=== PATIENT | male | born 1975 | race Caucasian/White ===

== ENCOUNTER 2023-03-03 10:52 | Outpatient (OUT) | payer BC, SELFPAY ==
[2023-03-03 08:43] LABS: Basophils Absolute Auto 0.1 10^3/uL (0.0-0.1); Eosinophils Absolute Auto 0.2 10^3/uL (0.0-0.7); Eosinophils Percent Auto 2.4 % (0.9-7.0); Hematocrit 42.2 % (42.0-54.0); Hemoglobin 14.2 g/dL (14.0-18.0); Immature Granulocytes Abs Auto 0.03 10^3/uL (0.00-0.03); Immature Granulocytes Pct Auto 0.3 % (0.0-0.5); Lymphocytes Absolute Auto 2.1 10^3/uL (1.2-3.8); Mean Corpuscular HGB Conc 33.6 g/dL (29.9-35.2); Mean Corpuscular Hemoglobin 32.4 pg (25.9-34.0); Mean Corpuscular Volume 96.3 fL (80.0-94.0); Mean Platelet Volume 9.5 fL (9.5-13.5); Monocytes Absolute Auto 0.9 10^3/uL (0.3-0.8); Monocytes Percent Auto 9.6 % (1.7-12.0); Neutrophils Absolute Auto 6.5 10^3/uL (1.4-6.5); Neutrophils Percent Auto 65.7 % (43.0-75.0); Platelet Count 255 10^3/uL (150-450); Red Blood Count 4.38 10^6/uL (4.70-6.10); Red Cell Distribution Width 12.7 % (11.0-15.0); White Blood Count 9.8 10^3/uL (4.0-11.0)
[2023-03-03 09:33] LABS: Estimated Average Glucose 111 mg/dL; Glycohemoglobin A1C 5.5 % (4.5-6.2)
[2023-03-03 09:37] LABS: Alanine Aminotransferase 42 U/L (16-63); Albumin Level 3.7 g/dL (3.4-5.0); Alkaline Phosphatase 113 U/L (46-116); Anion Gap 13.1; Aspartate Amino Transferase 15 U/L (15-37); BUN Creatinine Ratio 10.2; Bilirubin Total 0.5 mg/dL (0.2-1.0); Carbon Dioxide 27.9 mmol/L (21.0-32.0); Chloride 105 mmol/L (98-107); Chol HDL Ratio 4.1; Cholesterol 134 mg/dL (<=200); Estimated GFR (African America >60 (>=60); Estimated GFR (Non-African Ame >60 (>=60); Globulin 3.8 g/dL; Glucose 102 mg/dL (74-106); HDL Cholesterol 33 mg/dL (40-60); Sodium 142 mmol/L (136-145); Total Protein 7.5 g/dL (6.4-8.2); Triglycerides 50 mg/dL (<=150)
[2023-03-04 08:08] LABS: HIV Ab/p24 Ag Screen Non Reactive (Non Reactive)
== END 2023-03-03 10:53 | disposition home or self-care (01) ==
LOC: LAB 03-07 10:52
PROVIDERS: PCP Nurse Practitioner Primary Care; Visit Provider Nurse Practitioner Primary Care
DX: Z00.00 Encounter for general adult medical examination without abnormal findings (principal); Z13.6 Encounter for screening for cardiovascular disorders; Z11.4 Encounter for screening for human immunodeficiency virus [HIV]
CPT/HCPCS: 36415; 80053; 80061; 83036; 85025; 87389

== ENCOUNTER 2023-04-11 08:40 | Outpatient (OUT) | payer BC, SELFPAY ==
--- NOTE | 2023-04-11 08:15 | NM_ITS ---
Patient: ANGIE TARIQ Exam Date: 04/11/2023 : 1975 Gender:M Ordering : DR. DEBORAH SWIFT . Admission #: [id number] Family : VANCE BOJORQUEZ Order #: [id number] CLICK HERE TO VIEW EXAM RADIOLOGY REPORT PROCEDURE: NM MARELY PERF SPECT REST STR COMPARISON: None. INDICATIONS: CHEST PAIN, DYSPNEA TECHNIQUE: Exam Description: Stress/Rest one day protocol gated SPECT Rest Imagin.9 mCi Tc-99m Cardiolite IV on 04/11/2023 Stress Imaging 30.4 mCi Tc-99m Cardiolite IV on 04/11/2023 Exercise Protocol: 0.4 mg Lexiscan given IV Heart Rate (bpm): Rest: 72 Max: 146 PMHR: 84 Blood Pressure: Rest: 134/92 Max: 180/102 Exercise Time: Minutes: 9 Seconds: 30 Stage Reached: Stage: 3 Mets 10.2 Symptoms: Rest and peak stress ECG findings were normal and the exercise portion of the study was normal per attending physician Dr. Swift . For more details please see separate cardiac stress test report. FINDINGS: QUALITY OF STUDY: Good. PERFUSION DEFECT: None. LOCATION: N/AApical anterior. [place]. SIZE: Small (1-2 segments). SEVERITY: Moderate. TYPE: Persistent. WALL MOTION: Normal. LV SIZE: Enlarged; EDV 131 mL. TID / TCD: None; 0.9 LVEF: Normal. Calculated EF 63%. SUMMARY: Myocardial perfusion imaging study has ABNORMAL findings. CONCLUSION: 1. Fixed defect in the distal anterior wall and apex 2. No reversible ischemia 3. Dilated left ventricle, EDV 130 milliliters 4. Normal exercise test Dictated by: Zachariah Lozaad MD on 04/11/2023 at 14:22 Approved by: Zachariah Lozada MD on 04/11/2023 at 14:24
--- NOTE | 2023-04-11 11:17 | P.STRESS_ITS ---
Stress Test Stress Test Requesting physician: Mark Felton Procedure: Exercise Cardiolite stress test General Information: Reason for Stress Test: Chest pain Cardiac History and Risk Factors: Recently quit smoking from 2ppd. History of hypertension. Mother has afib. Resting 12 - Lead Electrocardiogram: Rate & rhythm: Normal sinus at a rate of 67. [place]: Normal T-waves: Normal ST-segments:Normal Stress Test: Protocol: Jaguar protocol was followed, with injection of Cardiolite once target heart rate was achieved. Exercise capacity: Good exercise capacity. Total exercise time of 9 minutes 30 seconds reached Jaguar stage 3 at 10.1MPH, 15% grade, & 1.2METs. Blood pressure: Initial: 134/92, Maximum: 180/102, Recovery: 146/88 Rate & rhythm: Patient remained in sinus rhythm during the exercise and recovery portions of the study.? The maximum heart rate was 146, which was 85% of the maximum predicted heart rate 172. ST-segments & T-waves: There were no T-wave changes and no ST-segment changes when compared to the baseline EKG. Patient response/symptoms: There were no symptoms similar to the chief complaint. Mild dyspnea. Interpretation: Normal exercise stress test without electrocardiographical evidence of ischemia. No reproducible chest pain. Cardiolite imaging interpretation will be reported separately. Clinical correlation required.?
== END 2023-04-11 08:41 | disposition home or self-care (01) ==
LOC: NM 08:40
PROVIDERS: PCP Nurse Practitioner Primary Care; Visit Provider Internal Medicine
DX: R07.9 Chest pain, unspecified (principal); I51.7 Cardiomegaly; I51.0 Cardiac septal defect, acquired
CPT/HCPCS: 78452; 93017; A9500

== ENCOUNTER 2023-04-23 06:55 | Outpatient (OUT) | payer BC, SELFPAY ==
[2023-04-23 07:12] LABS: Hematocrit 41.5 % (42.0-54.0); Hemoglobin 13.9 g/dL (14.0-18.0); Mean Corpuscular HGB Conc 33.5 g/dL (29.9-35.2); Mean Corpuscular Hemoglobin 32.3 pg (25.9-34.0); Mean Corpuscular Volume 96.3 fL (80.0-94.0); Mean Platelet Volume 9.1 fL (9.5-13.5); Platelet Count 271 10^3/uL (150-450); Red Blood Count 4.31 10^6/uL (4.70-6.10); Red Cell Distribution Width 12.4 % (11.0-15.0); White Blood Count 14.5 10^3/uL (4.0-11.0)
[2023-04-23 07:44] LABS: Eosinophils Absolute Manual 0.14 10^3/uL (0.00-0.70); Lymphocytes Absolute Manual 5.22 10^3/uL (1.20-3.80); Monocytes Absolute Manual 1.01 10^3/uL (0.30-0.80); Segmented Neut Absolute Manual 8.12 10^3/uL (1.4-6.5)
[2023-04-23 10:24] LABS: Anion Gap 14.4; Calcium 9.2 mg/dL (8.5-10.1); Carbon Dioxide 26.9 mmol/L (21.0-32.0); Chloride 106 mmol/L (98-107); Estimated GFR (African America >60 (>=60); Estimated GFR (Non-African Ame >60 (>=60); Glucose 53 mg/dL (74-106); Potassium 3.3 mmol/L (3.5-5.1); Sodium 144 mmol/L (136-145)
== END 2023-04-23 06:56 | disposition home or self-care (01) ==
LOC: LAB 06:56
PROVIDERS: PCP Nurse Practitioner Primary Care; Visit Provider Internal Medicine Cardiovascular Disease
DX: Z01.818 Encounter for other preprocedural examination (principal)
CPT/HCPCS: 36415; 80048; 85027

== ENCOUNTER 2023-04-25 06:57 | Outpatient (OUT) | payer BC, SELFPAY ==
--- NOTE | 2023-04-25 07:58 | CA_ITS ---
Patient: ANGIE TARIQ Exam Date: 04/25/2023 : 1975 Gender:M Ordering : ALEXANDER TY Admission #: [id number] Family : Order #: [id number] CLICK HERE TO VIEW EXAM ECHOCARDIOGRAM REPORT PROCEDURE: CA ECHO DOPPLER COMPLETE INDICATIONS: Dyspnea COMPARISON: None. DESCRIPTION: COMPLETE ECHOCARDIOGRAM Real-time transthoracic echocardiography with 2D, M-mode, spectral and color flow Doppler performed. QUALITY: Technical quality was good. LEFT VENTRICLE: Normal chamber size. Mild concentric left ventricular hypertrophy. LV EF: Global left ventricular systolic function is normal. Calculated left ventricular ejection fraction is 64% DIASTOLIC: Normal diastolic function. ATRIAL SEPTUM: Inadequately seen. LEFT ATRIUM: Mild dilatation. RIGHT ATRIUM: Normal chamber size. RIGHT VENTRICLE: Normal chamber size. Normal right ventricular systolic function. TRICUSPID VALVE: Normal mobility and thickness. Trivial regurgitation. Mild pulmonary hypertension. RVSP 35mmHg MITRAL VALVE: Normal mobility and thickness. No evidence of mitral valve stenosis. There is no mitral annular calcification. Trivial mitral regurgitation. AORTIC VALVE: Normal trileaflet appearance. No visible sclerosis. Normal leaflet mobility. No evidence of aortic valve stenosis. No aortic regurgitation. AORTIC ROOT: Normal diameter and appearance. PULMONIC VALVE: Normal thickness and mobility. No stenosis. Trivial regurgitation. PERICARDIUM: Anterior free space; trivial effusion versus fat pad. IVC: Collapses with inspirations. Normal size CONCLUSION: 1. Global left ventricular systolic function is normal; visually estimated ejection fraction is 60 to 65% 2. Mildly increased left ventricular wall thickness 3. Normal diastolic function 4. The left atrium is mildly dilated 5. Right ventricle is normal in size and systolic function 6. Mildly elevated right ventricular systolic pressure; RVSP 35 mmHg 7. No significant valvular abnormalities 8. Anterior free space; trivial effusion versus fat pad Adult Echocardiography Procedure Report Left Ventricle LVEDD (3.7 - 5.6 cm): 4.65 cm LVESD (2.2 - 4.0 cm): 3.34 cm LVIVS thickness (0.6 - 1.2 cm): 1.24 cm LVPW thickness (0.5 - 1.0 cm): 1.20 cm e': 0.10 m/s E - e': 9.58 LVOT Max Gradient: 4.80 mm[Hg], 4.17 mm[Hg] LVOT Area (cm2): 1.06 m/s Peak Velocity (LVOT): 1.10 m/s, 1.02 m/s Mean Velocity (LVOT): 0.71 m/s LVOT Diameter 2.16 cm Left Ventricular Ejection Fraction: 64.16 % Left Atrium LA Volume Index (2D A2C): 42.66 ml/m2 Left Atrium Systolic Dimension: 3.87 cm Mitral Valve MV E to A Ratio: 1.41 Mitral Valve A-Wave Peak Velocity: 0.67 m/s Mitral Valve E-Wave Peak Velocity: 0.95 m/s Right Ventricle RV Internal Diastolic Dimension: 3.76 cm Aorta AO Root Diam: 3.32 cm Ascending Ao Diam: 3.10 cm Aortic Valve AoV Area (Peak Abhinav): 3.00 cm2, 3.10 cm2 AoV Area (VTI): 2.92 cm2, 2.77 cm2 Peak Velocity(Antegrade Flow): 1.29 m/s Peak Gradient(Antegrade Flow): 6.64 mm[Hg] Mean Velocity(Antegrade Flow): 0.82 m/s Mean Gradient(Antegrade Flow): 3.18 mm[Hg] Velocity Time Integral: 26.94 cm Tricuspid Valve Peak Velocity (Regurgitant Flow): 1.58 m/s, 2.35 m/s, 2.81 m/s Pulmonic Valve Mean Gradient: 2.43 mm[Hg], 2.94 mm[Hg] Mean Velocity: 0.74 m/s, 0.80 m/s Peak Velocity: 1.14 m/s Peak Gradient: 4.50 mm[Hg], 5.93 mm[Hg] Right Atrium Right Atrium Systolic Pressure: 60.06 ml, 60.06 ml Dictated by: Owen Louie M.D. on 04/25/2023 at 14:24 Approved by: Owen Louie M.D. on 04/25/2023 at 14:27
== END 2023-04-25 06:58 | disposition home or self-care (01) ==
LOC: CARD 06:57
PROVIDERS: PCP Nurse Practitioner Primary Care; Visit Provider Internal Medicine Cardiovascular Disease
DX: R06.09 Other forms of dyspnea (principal)
CPT/HCPCS: 93306

== ENCOUNTER 2023-05-16 10:21 | Outpatient (OUT) | payer BC, SELFPAY ==
[2023-05-16 11:11] LABS: Basophils Absolute Auto 0.1 10^3/uL (0.0-0.1); Basophils Percent Auto 0.5 % (0.2-2.0); Eosinophils Absolute Auto 0.2 10^3/uL (0.0-0.7); Eosinophils Percent Auto 1.4 % (0.9-7.0); Hematocrit 41.8 % (42.0-54.0); Hemoglobin 13.7 g/dL (14.0-18.0); Immature Granulocytes Abs Auto 0.08 10^3/uL (0.00-0.03); Immature Granulocytes Pct Auto 0.7 % (0.0-0.5); Lymphocytes Absolute Auto 3.5 10^3/uL (1.2-3.8); Lymphocytes Percent Auto 29.3 % (20.5-60.0); Mean Corpuscular HGB Conc 32.8 g/dL (29.9-35.2); Mean Corpuscular Hemoglobin 32.2 pg (25.9-34.0); Mean Corpuscular Volume 98.1 fL (80.0-94.0); Mean Platelet Volume 9.3 fL (9.5-13.5); Monocytes Absolute Auto 1.2 10^3/uL (0.3-0.8); Monocytes Percent Auto 10.1 % (1.7-12.0); Neutrophils Absolute Auto 6.9 10^3/uL (1.4-6.5); Platelet Count 263 10^3/uL (150-450); Red Blood Count 4.26 10^6/uL (4.70-6.10); Red Cell Distribution Width 12.5 % (11.0-15.0)
[2023-05-16 11:18] LABS: Anion Gap 7.2; BUN Creatinine Ratio 14.3; Calcium 9.1 mg/dL (8.5-10.1); Carbon Dioxide 30.4 mmol/L (21.0-32.0); Chloride 104 mmol/L (98-107); Estimated GFR (African America >60 (>=60); Estimated GFR (Non-African Ame >60 (>=60); Glucose 85 mg/dL (74-106); Potassium 3.6 mmol/L (3.5-5.1); Sodium 138 mmol/L (136-145)
--- OUTSIDE RECORDS SUMMARY | 2023-06-26 13:41 | XMS_ITS | CCD ---
Author Name Unknown Address [address] [facility] [address] [place] [address] Organization [facility] Care Team Providers Care Architectural Wood Model Maker Name Role Phone SAMSA ., DEBORAH Attending Unavailable DR BRYN AMADOR Consulting Unavailable SAMSA ., DEBORAH Admitting [facility] Primary Care Unavailable SAMSA ., DEBORAH Consulting Unavailable SAMSA ., DEBORAH Attending Unavailable SAMSA ., DEBORAH Consulting Unavailable SAMSA ., DEBORAH Admitting [facility] Primary Care Unavailable SAMSA ., DEBORAH Attending Unavailable SAMSA ., DEBORAH Consulting Unavailable SAMSA ., DEBORAH Admitting [facility] Primary Care Unavailable SHAMMO, VANCE Attending Unavailable SHAMMO, VANCE Consulting Unavailable SHAMMO, VANCE Admitting [facility] Primary Care Unavailable SAMSA ., DEBORAH Admitting [facility] Primary Care Unavailable SAMSA ., DEBORAH Attending Unavailable SAMSA ., DEBORAH Consulting Unavailable DAVID CRUZ Consulting Unavailable ALGHOTHANI, MOHAMAD Admitting Unavailable ALGHOTHANI, MOHAMAD Attending Unavailable ALGHOTHANI, MOHAMAD Attending Unavailable ALGHOTHANI, MOHAMAD Referring Unavailable Problems Problem Classification Problem Date Documented Da te Episodic/Chronic Asthma (8 sources) Mild persistent asthma with (acute) exacerbation; Translations: [Mild persistent asthma, uncomplicated] Onset: 02-20-2022 Chronic Coronary atherosclerosis and other heart disease (2 sources) Other forms of angina pectoris; Translations: [Other forms of angina pectoris] Onset: 04-17-2023 Chronic Disorders of lipid metabolism (1 source) Mixed hyperlipidemia; Translations: [MIXED HYPERLIPIDEMIA] Onset: 02-08-2023 Chronic Essential hypertension (4 sources) Essential (primary) hypertension; Translations: [ESSENTIAL PRIMARY HYPERTENSION] Onset: 08-14-2022 Chronic Nonspecific chest pain (2 sources) Chest pain, unspecified; Translations: [Chest pain, unspecified] Onset: 04-17-2023 Episodic Other screening for suspected conditions (not mental disorders or infectious disease) (2 sources) Abnormal result of other cardiovascular function study; Translations: [Abnormal result of other cardiovascular function study] Onset: 04-17-2023 Episodic Residual codes; unclassified (1 source) Idiopathic hypersomnia with long sleep time; Translations: [IDIO HYPERSOMNIA W/LONG SLEEP TIME] Onset: 03-02-2022 Chronic Residual codes; unclassified (5 sources) Obstructive sleep apnea (adult) (pediatric); Translations: [OBSTRUCTIVE SLEEP APNEA] Onset: 02-21-2022 Chronic Results Test Name Value Interpretation Reference Range Facil ity HPon 05-30-2023 HP Attestation signed by Alexander Richard MD at 05/30/2023 8:56 AM H and P reviewed. No significant changes. Patient presenting with abnormal stress. Plan to proceed with cath. Procedure was explained to patient at length and in detail. Risks, benefits, and alternatives were discussed. Patient is informed that risks of this invasive procedure include, but are not limited to, bleeding, hematoma, kidney injury, CVA, arrythmia requiring defibrillation, need for emergent open heart surgery, and . Patient understands these risks and wishes to proceed. Alexander Richard MD History Of Present Illness Gina Li is a 47 y.o. male presenting for scheduled coronary angiogram. PMHx of tobacco abuse, HTN, DLD, asthma. Was evaluated in the clinic last month for recurrent CP. Reports symptoms of exertional chest pain over the past few months. He reports some associated shortness of breath. He denies any syncope, LE edema, orthopnea, PND, palps, or bleeding. Patient denies any previous history of CVA, PVD, DM, HTN, Depressed LVEF, and CAD. Nuclear MPI was performed and demonstrates area of fixed defect in the apex. Past Medical History He has a past medical history of Asthma, Hyperlipidemia, and Hypertension. Surgical History He has a past surgical history that includes Cholecystectomy. Social History He reports that he quit smoking about 7 weeks ago. His smoking use included cigarettes. He uses smokeless tobacco. He reports that he does not currently use alcohol. No history on file for drug use. Family History Family History Problem Relation Name Age of Onset Atrial fibrillation Mother Allergies Patient has no known allergies. Medications Medications Prior to Admission Medication Sig Dispense Refill Last Dose Advair Diskus 250-50 mcg/dose diskus inhaler Inhale 1 puff in the morning and at bedtime. 05/30/2023 albuterol 90 mcg/actuation inhaler Inhale 2 puffs every 4 (four) hours if needed for wheezing or shortness of breath. 05/30/2023 aspirin 81 mg EC tablet Take 81 mg by mouth in the morning. 05/30/2023 atorvastatin (Lipitor) 20 mg tablet Take 20 mg by mouth at bedtime. 05/29/2023 buPROPion (Zyban) 150 mg 12 hr tablet Take 150 mg by mouth in the morning and at bedtime. 05/30/2023 fexofenadine (Swati) 180 mg tablet Take 180 mg by mouth in the morning. 05/29/2023 losartan (Cozaar) 25 mg tablet Take 25 mg by mouth in the morning. 05/30/2023 montelukast (Singulair) 10 mg tablet Take 10 mg by mouth in the morning. 05/30/2023 omeprazole (PriLOSEC) [address] capsule Take 40 mg by mouth in the morning. 05/30/2023 predniSONE (Deltasone) 20 mg tablet Take 60 mg by mouth in the morning. 05/29/2023 tiotropium (Spiriva) [address] 1 capsule into inhaler and inhale in the morning. 05/30/2023 Review of Systems 12 ROS negative except as in HPI Last Recorded Vitals Visit Vitals BP 124/84 Pulse 71 Resp 14 SpO2 98% Smoking Status Former Physical Exam Constitutional: Well developed, Well nourished, No acute distress, Non-toxic appearance. HENT: Normocephalic, Atraumatic, Bilateral external ears have normal appearance, Nose appears normal, nares are patent. Eyes: PERRLA, EOMI, Conjunctiva normal, No discharge. Neck: Normal range of motion, No tenderness, Supple, No stridor. No cervical lymphadenopathy noted. Cardiovascular: Normal heart rate, Normal rhythm, No murmurs, No rubs, No gallops. Thorax & Lungs: Normal breath sounds, No respiratory distress, No wheezing, No chest tenderness to palpation. Abdomen: Bowel sounds normal, Soft, Nontender, No masses, No pulsatile masses. Skin: Warm, Dry, No erythema, No rash. Back: No tenderness, No CVA tenderness. Extremities: Intact distal pulses, No edema, No tenderness, No cyanosis, No clubbing. Musculoskeletal: Grossly normal strength in extremities Neurologic: Alert & oriented x 3, no gross focal neurological deficits Psychiatric: Affect normal, Judgment normal, Mood normal. Relevant Lab Results Lab Results Component Value Date NA 138 05/16/2023 K 3.5 05/16/2023 CL 104 05/16/2023 CO2 30.4 05/16/2023 BUN 14 05/16/2023 Relevant Imaging Results Electrocardiogram, 12-lead Normal sinus rhythm Normal ECG No previous ECGs available Assessment/Plan Active Problems: Chest pain Abnormal stress test - Given typical chest pain and abnormal stress test with fixed defect, recommend invasive coronary angiography with possible PCI to delineate coronary anatomy and identify any high risk lesions. -Procedure was explained to patient at length and in detail. Risks, benefits, and alternatives were discussed. -Patient is informed that risks of this invasive procedure include, but are not limited to, bleedin (more content not included)... Normal [facility] SHAYNOTCale 05-30-2023 SHAYNOTGely RN educated pt on d/ c instructions. RN encouraged pt to voice any questions or concerns. Pt verbalizes no questions or concerns at this time. Pt was wheeled off of unit with all of belongings. Normal [facility] Telephoneon 05-15-2023 Telephone [id number] Desire Li 1975 M Date Provider Department Center 05/15/2023 MEHREEN HACKETT [facility] DE [facility] Family History Problem Relation Age of Onset Atrial fibrillation Mother Family Status - Relation Status Age at Mother Normal [facility] Orders Onlyon 05-07-2023 Orders Only [id number] Desire Li 1975 M Date Provider Department Center 05/07/2023 MEHREEN HACKETT [facility] Family History Problem Relation Age of Onset Atrial fibrillation Mother Family Status - Relation Status Age at Mother [facility] Office Visiton 04-17-2023 Follow-up visit [id number] Desire Li 1975 M Date Provider Department Center 04/17/2023 ALEXANDER CONTE CARD [facility] Family History Problem Relation Age of Onset Atrial fibrillation Mother Family Status - Relation Status Age at Mother Level of Service:43694 [facility] OFFICE/OUTPATIENT NEW MODERATE MDM 45-59 MINUTES Normal [facility] Orders Onlyon 04-17-2023 Orders Only [id number] Desire Li 1975 M Date Provider Department Center 04/17/2023 CHAVO WHITAKER CARD [facility] Family History Problem Relation Age of Onset Atrial fibrillation Mother Family Status - Relation Status Age at Mother [facility] CBC AUTO DIFFon 08-14-2022 BASO # 0.1 103/ul Normal 0.0-0.1 [facility] Comment on above: Performed By: #### C BC #### [facility] [address] [place] [address] Dr. Miriam Ernandez Basophils/100 WBC (Bld) 0.5 % Normal 0.2-2.0 [facility] Comment on above: Performed By: #### C BC #### [facility] [address] [place] [address] Dr. Miriam Ernandez EO # 0.2 103/ul Normal 0.0-0.7 [facility] Comment on above: Performed By: #### C BC #### [facility] [address] [place] [address] Dr. Miriam Ernandez Eosinophils/100 WBC (Bld) 1.7 % Normal 0.9-7.0 [facility] Comment on above: Performed By: #### C BC #### [facility] [address] [place] [address] Dr. Miriam Ernandez Erythrocyte distribution wid th (RBC) [Ratio] 12.2 % Normal 11.0-15.0 [facility] Comment on above: Performed By: #### C BC #### [facility] [address] [place] [address] Dr. Miriam Ernandez Hematocrit (Bld) [Volume fraction] 45.6 % Normal 4 2.0-54.0 [facility] Comment on above: Performed By: #### C BC #### [facility] [address] [place] [address] Dr. Miriam Ernandez Hemoglobin (Bld) [Mass/Vol] 14.6 g/dL Normal 14.0-18. 0 [facility] Comment on above: Performed By: #### C BC #### [facility] [address] [place] [address] Dr. Miriam Ernandez IG # 0.03 10e3/ul Normal 0.00-0.03 [facility] Comment on above: Performed By: #### C BC #### [facility] [address] [place] [address] Dr. Miriam Ernandez IG % 0.3 % Normal 0.0-0.5 [facility] Comment on above: Performed By: #### C BC #### [facility] [address] [place] [address] Dr. Miriam Ernandez LYMPH # 2.5 103/ul Normal 1.2-3.8 [facility] Comment on above: Performed By: #### C BC #### [facility] [address] [place] [address] Dr. Miriam Ernandez Lymphocytes/100 WBC (Bld) 23.5 % Normal 20.5-60.0 [facility] Comment on above: Performed By: #### C BC #### [facility] [address] [place] [address] Dr. Miriam Ernandez MANUAL DIFF REQ NO Normal [facility] Comment on above: Performed By: #### C BC #### [facility] [address] [place] [address] Dr. Miriam Ernandez MCH (RBC) [Entitic mass] 31.6 pg Normal 25.9-34.0 [facility] Comment on above: Performed By: #### C BC #### [facility] [address] [place] [address] Dr. Miriam Ernandez MCHC (RBC) [Mass/Vol] 32.0 g/dL Normal 29.9-35.2 [facility] Comment on above: Performed By: #### C BC #### [facility] [address] [place] [address] Dr. Miriam Ernandez MCV (RBC) [Entitic vol] 98.7 fL Critically high 80.0-94 .0 [facility] Comment on above: Performed By: #### C BC #### [facility] [address] [place] [address] Dr. Miriam Ernandez MONO # 1.0 103/ul Critically high 0.3-0.8 [facility] Comment on above: Performed By: #### C BC #### [facility] [address] [place] [address] Dr. Miriam Ernandez Monocytes/100 WBC (Bld) 9.0 % Normal 1.7-12.0 [facility] Comment on above: Performed By: #### C BC #### [facility] [address] [place] [address] Dr. Miriam Ernandez NEUT # 7.0 103/ul Critically high 1.4-6.5 [facility] Comment on above: Performed By: #### C BC #### [facility] [address] [place] [address] Dr. Miriam Ernandez Neutrophils/100 WBC (Bld) 65.0 % Normal 43.0-75.0 [facility] Comment on above: Performed By: #### C BC #### [facility] [address] [place] [address] Dr. Miriam Ernandez Platelet mean volume (Bld) [Entitic vol] 9.8 fL Normal 9.5-13.5 [facility] Comment on above: Performed By: #### C BC #### [facility] [address] [address] [address] Miriam Ernandez PLT 255 103/ul Normal 150-450 [facility] Comment on above: Performed By: #### C BC #### [facility] [address] [place] [address] Dr. Miriam Ernandez RBC 4.62 106/ul Critically low 4.70-6.10 [facility] Comment on above: Performed By: #### C BC #### [facility] [address] [place] [address] Dr. Miriam Ernandez WBC 10.7 103/ul Normal 4.0-11.0 [facility] Comment on above: Performed By: #### C BC #### [facility] [address] [place] [address] Dr. Miriam Ernandez LIPID PROFILEon 08-14-2022 CHOL-HDL RATIO NORM SEE BELOW Normal [facility] Comment on above: Result Comment: 3.3 - 4.4 LOW RISK 4.4 - 7.1 AVERAGE RISK 7.1 - 11.0 MODERATE RISK >11.0 HIGH RISK Performed By: #### L IPID, CMP #### [facility] [address] [place] [address] Dr. Miriam Ernandez Cholesterol [Mass/Vol] 108 mg/dL Normal <=200 [facility] Comment on above: Performed By: #### L IPID, CMP #### [facility] [address] [place] [address] Dr. Miriam Ernandez Cholesterol in HDL [Mass/Vol] 31 mg/dL Critically low 40 -60 [facility] Comment on above: Performed By: #### L IPID, CMP #### [facility] [address] [place] [address] Dr. Miriam Ernandez Cholesterol in LDL [Mass/Vol] 50.0 mg/dL Normal [facility] Comment on above: Performed By: #### L IPID, CMP #### [facility] [address] [place] [address] Dr. Miriam Ernandez Cholesterol.total/Cholestero l in HDL [Mass ratio] 3.5 {ratio} Normal [facility] Comment on above: Performed By: #### L IPID, CMP #### [facility] [address] [place] [address] Dr. Miriam Ernandez HDL NORMAL > or = 60 mg/dl - LO W CARDIOVASCULAR RISK <40 mg/dl - HIGH CARDIOVASCULAR RISK Normal [facility] Comment on above: Performed By: #### L IPID, CMP #### [facility] [address] [place] [address] Dr. Miriam Ernandez LDL CALC NORMAL SEE BELOW Normal [facility] Comment on above: Result Comment: <100 mg/dl OPTIMAL 100 - 129 mg/dl NEAR OR ABOVE OPTIMAL 130 - 159 mg/dl BORDERLINE HIGH 160 - 189 mg/dl HIGH >190 mg/dl VERY HIGH Performed By: #### L IPID, CMP #### [facility] [address] [place] [address] Dr. iMriam Ernandez Triglyceride [Mass/Vol] 135 mg/dL Normal <=150 [facility] Comment on above: Performed By: #### L IPID, CMP #### [facility] [address] [place] [address] Dr. Miriam Ernandez VLDL CALC 27.0 mg/dL Normal [facility] Comment on above: Performed By: #### L IPID, CMP #### [facility] [address] [place] [address] Dr. Miriam Ernandez PROF 14(COMP METB)on 023 Albumin [Mass/Vol] 3.9 g/dL Normal 3.4-5.0 [facility] Comment on above: Performed By: #### L IPID, CMP #### [facility] [address] [address] [address] Miriam Ernandez Albumin/Globulin [Mass ratio] 1.2 {ratio} Normal [facility] Comment on above: Performed By: #### L IPID, CMP #### [facility] [address] [address] [address] Miriam Ernandez ALP [Catalytic activity/Vol] 110 U/L Normal 46-116 [facility] Comment on above: Performed By: #### L IPID, CMP #### [facility] [address] [address] [address] Miriam Ernandez ALT [Catalytic activity/Vol] 46 U/L Normal 16-63 [facility] Comment on above: Performed By: #### L IPID, CMP #### [facility] [address] [address] [address] Miriam Ernandez Anion gap [Moles/Vol] 10.9 mmol/L Normal [facility] Comment on above: Performed By: #### L IPID, CMP #### [facility] [address] [address] [address] Miriam Ernandez AST [Catalytic activity/Vol] 18 U/L Normal 15-37 [facility] Comment on above: Performed By: #### L IPID, CMP #### [facility] [address] [address] [address] Miriam Ernandez Bilirubin [Mass/Vol] 0.2 mg/dL Normal 0.2-1.0 [facility] Comment on above: Performed By: #### L IPID, CMP #### [facility] [address] [address] [address] Mriiam Ernandez Calcium [Mass/Vol] 9.4 mg/dL Normal 8.5-10.1 [facility] Comment on above: Performed By: #### L IPID, CMP #### [facility] [address] [address] [address] Miriam Ernandez Chloride [Moles/Vol] 105 mmol/L Normal 98-107 [facility] Comment on above: Performed By: #### L IPID, CMP #### [facility] [address] [address] [address] Miriam Ernandez CO2 [Moles/Vol] 30.2 mmol/L Normal 21.0-32.0 [facility] Comment on above: Performed By: #### L IPID, CMP #### [facility] [address] [address] [address] Miriam Ernandez Creatinine [Mass/Vol] 0.80 mg/dL Normal 0.70-1.30 [facility] Comment on above: Performed By: #### L IPID, CMP #### [facility] [address] [address] [address] Miriam Ernandez EGFR-AF NEPALESE >60 Normal >=60 [facility] Comment on above: Performed By: #### L IPID, CMP #### [facility] [address] [address] [address] Miriam Ernandez EGFR-NON AF NEPALESE >60 Normal >=60 [facility] Comment on above: Performed By: #### L IPID, CMP #### [facility] [address] [address] [address] Miriam Ernandez Globulin (S) [Mass/Vol] 3.3 g/dL Normal [facility] Comment on above: Performed By: #### L IPID, CMP #### [facility] [address] [address] [address] Miriam Ernandez Glucose [Mass/Vol] 64 mg/dL Critically low 74-106 [facility] Comment on above: Performed By: #### L IPID, CMP #### [facility] [address] [address] [address] Miriam Ernandez Potassium [Moles/Vol] 4.1 mmol/L Normal 3.5-5.1 [facility] Comment on above: Performed By: #### L IPID, CMP #### [facility] [address] [address] [address] Miriam Ernandez Protein [Mass/Vol] 7.2 g/dL Normal 6.4-8.2 [facility] Comment on above: Performed By: #### L IPID, CMP #### [facility] [address] [address] [address] Miriam Ernandez Sodium [Moles/Vol] 142 mmol/L Normal 136-145 [facility] Comment on above: Performed By: #### L IPID, CMP #### [facility] [address] [address] [address] Miriam Ernandez Urea nitrogen [Mass/Vol] 10.0 mg/dL Normal 7.0-18.0 [facility] Comment on above: Performed By: #### L IPID, CMP #### [facility] [address] [address] [address] Miriam Ernandez Urea nitrogen/Creatinine [Mass ratio] 12.5 mg/mg Normal [facility] Comment on above: Performed By: #### L IPID, CMP #### [facility] [address] [address] [address] Miriam Ernandez HEMOGLOBINon 02-20-2022 Hemoglobin (Bld) [Mass/Vol] 14.5 g/dL Normal 14.0-18. 0 [facility] Comment on above: Performed By: #### H GB #### [facility] [address] [address] [address] Miriam Ernandez XR CHEST 2 Von 02-20-2022 XR CHEST 2 V EXAMINATION: XR CHES T 2 V HISTORY: Uncomplicated mild persistent asthma COMPARISON: No relevant comparison available. FINDINGS: LUNGS: Slight hyperexpanded lungs. Minimal wall thickening of a few central bronchi. VASCULATURE: No increased pulmonary vasculature. PLEURA: No pneumothorax, effusion, or pleural thickening. CARDIAC: No cardiomegaly or cardiac silhouette abnormality. MEDIASTINUM: No visible mass or adenopathy. BONES: No fracture or visible bone lesion. OTHER: Negative. IMPRESSION: 1. Minimal wall thickening of a few central bronchi and slightly hyperexpanded lungs consistent with patient history. Electronically authenticated by: BRYN AMADOR Date: 2022-02-20 15:29 Normal [facility] Coding Summaryon 06-11-2019 Coding Summary CODING DATE: 019 [facility] STATUS: Home PAYOR: Self Pay ADMIT DX: REASON FOR VISIT DX: R51 Headache FINAL DX: PRINCIPAL: T58.91XA Toxic effect of carbon monoxide from unspecified source, accidental (unintentional), initial encounter SECONDARY: F17.200 Nicotine dependence, unspecified, uncomplicated PYMT PROC APC STAT DESCRIPTION DOCTOR NAME DATE NOTE: The code number assigned matches the documented diagnosis and / or procedure in the patient's chart. However, the narrative phrase printed from the coding software may appear abbreviated, or result in slightly different terminology. Coded By: Elier Mckay Date Saved: 06/11/2019 05:16 pm [facility] Coding Summary CODING DATE: 019 [facility] STATUS: Home PAYOR: Self Pay ADMIT DX: REASON FOR VISIT DX: R51 Headache FINAL DX: PRINCIPAL: T58.91XA Toxic effect of carbon monoxide from unspecified source, accidental (unintentional), initial encounter SECONDARY: F17.200 Nicotine dependence, unspecified, uncomplicated PYMT PROC APC STAT DESCRIPTION DOCTOR NAME DATE NOTE: The code number assigned matches the documented diagnosis and / or procedure in the patient's chart. However, the narrative phrase printed from the coding software may appear abbreviated, or result in slightly different terminology. Coded By: Elier Mckay Date Saved: 06/11/2019 05:15 pm [facility] Noteon 06-09-2019 Ambulance Note [id number] [facility] .Auto Diff 1on 06-08-2019 Auto Crawford % 10 % Normal 1-12 [facility] Comment on above: Performed By: #### 1 [id number], [id number], 7262785967, 2157015930, 6091023, 54769892, [id number] #### [facility] (DEFAULT) [address] [place] [address] 05362 Baso Abs# 0.0 x10 Normal 0.0-0.2 [facility] Comment on above: Performed By: #### 1 [id number], 1700515495, 7709106822, 7562180375, 5839636, 80467577, 0926688291 #### [facility] (DEFAULT) [address] [place] [address] 46504 Basophils/100 WBC (Bld) 0.3 % Normal 0.2-2.0 [facility] Comment on above: Performed By: #### 1 [id number], 6710485597, 2529076630, 6790108983, 5166464, 01974072, 6753324219 #### [facility] (DEFAULT) [address] [place] [address] 38305 Eos Abs# 0.4 x10 Normal 0.0-0.4 [facility] Comment on above: Performed By: #### 1 [id number], 9144389361, 8511948880, 0281076235, 5558787, 22268518, 1590652265 #### [facility] (DEFAULT) [address] [place] [address] 46625 Eosinophils/100 WBC (Bld) 4.7 % High 0.9-4.0 [facility] Comment on above: Performed By: #### 1 [id number], 5036564060, 7183449090, 3092384251, 9707914, 92805551, 2215131343 #### [facility] (DEFAULT) [address] [place] [address] 63130 Lymphocytes (Bld) [#/Vol] 3.1 x10 High 1.3-2.9 [facility] Comment on above: Performed By: #### 1 [id number], 8540977445, 3364677270, 6180942610, 2094828, 01726783, 6505020658 #### [facility] (DEFAULT) [address] [place] [address] 42670 Lymphocytes/100 WBC (Bld) 33 % Normal 14-48 [facility] Comment on above: Performed By: #### 1 [id number], 5096918176, 2477541687, 6314960640, 4205795, 46184046, 4255161251 #### [facility] (DEFAULT) [address] [place] [address] 98906 Crawford Abs# 0.9 x10 High 0.0-0.8 [facility] Comment on above: Performed By: #### 1 [id number], 7875930979, 0158921280, 6735005386, 1447115, 57990835, 9769113535 #### [facility] (DEFAULT) [address] [place] [address] 98191 Neut Abs# 5.0 x10 Normal 1.5-9.2 [facility] Comment on above: Performed By: #### 1 [id number], 3788211409, 2496653519, 0210350086, 6609579, 23304698, 5682892279 #### [facility] (DEFAULT) [address] [place] [address] Neutrophils/100 WBC (Bld) 53 % Normal 44-88 [facility] Comment on above: Performed By: #### 1 [id number], 8972387040, 8831141872, 7967594460, 5746861, 54910935, 8455107794 #### [facility] (DEFAULT) [address] [place] [address] 61259[facility] Standardon 06-08-2019 eGFR Non AA >60 [facility] Comment on above: Performed By: #### 1 [id number], 0043558456, 5312272696, 6440142223, 1894785, 33691973, 5279029299 #### [facility] (DEFAULT) [address] [place] [address] 21674 eGFR AA >60 [facility] Comment on above: Result Comment: Cpas breezy Kidney disease could be indicated at eGFRs of less than 60 ml/min/1.73m2. Kidney Failure is indicated at less than 15 ml/min/1.73m2 Performed By: #### 1 [id number], 1776131743, 2462584293, 2749530444, 9951589, 24771953, 9505371615 #### [facility] (DEFAULT) [address] [place] [address] 50364 Anion gap [Moles/Vol] 16.0 mmol/L Normal 5.0-19.0 [facility] Comment on above: Performed By: #### 1 [id number], 4871622922, 2646842301, 9134626697, 0434565, 59824363, 8249364978 #### [facility] (DEFAULT) [address] [place] [address] 32409 Calcium [Mass/Vol] 9.0 mg/dL Normal 8.9-10.3 [facility] Comment on above: Performed By: #### 1 [id number], 7937235686, 9436777727, 7744006136, 2197406, 72461983, 6667194059 #### [facility] (DEFAULT) [address] [place] [address] 60391 Chloride [Moles/Vol] 104 mmol/L Normal 101-111 [facility] Comment on above: Performed By: #### 1 [id number], 3844558324, 9778629088, 2169839076, 2814234, 75634976, 3340597659 #### [facility] (DEFAULT) [address] [place] [address] 63953 CO2 [Moles/Vol] 21 mmol/L Normal 21-32 [facility] Comment on above: Performed By: #### 1 [id number], 8435761685, 6130214171, 7934695943, 5845022, 76105084, 4256797735 #### [facility] (DEFAULT) [address] [place] [address] 03229 Creatinine [Mass/Vol] 0.92 mg/dL Normal 0.90-1.30 [facility] Comment on above: Performed By: #### 1 355480076, 2317423197, 8363545849, 6901512076, 1065505, 80877699, 5942304594 #### [facility] (DEFAULT) [address] [place] [address] 15412 Glucose [Mass/Vol] 156.0 mg/dL High 74.0-118.0 [facility] Comment on above: Performed By: #### 1 [id number], 9187830571, 1649991469, 6546098070, 5973076, 60325756, 8229776388 #### [facility] (DEFAULT) [address] [place] [address] 33218 Osmolality [Osmolality] 279 mOsm/L [facility] Comment on above: Performed By: #### 1 [id number], 9627802026, 1007730381, 6854256205, 6282573, 52168112, 5705863696 #### [facility] (DEFAULT) [address] [place] [address] 59962 Potassium [Moles/Vol] 3.4 mmol/L Low 3.6-5.1 [facility] Comment on above: Performed By: #### 1 [id number], 6382632528, 3557981633, 6924955475, 7180051, 41950238, 1971437678 #### [facility] (DEFAULT) [address] [place] [address] 08347 Sodium [Moles/Vol] 138.0 mmol/L Normal 136.0-144.0 [facility] Comment on above: Performed By: #### 1 [id number], 7605690084, 6024147219, 5546224082, 9589449, 17456510, 8087832749 #### [facility] (DEFAULT) [address] [place] [address] 68613 Urea nitrogen [Mass/Vol] 14 mg/dL Normal 8-26 [facility] Comment on above: Performed By: #### 1 [id number], 0521702194, 8874308709, 3030333984, 5371736, 23388737, 0155549640 #### [facility] (DEFAULT) [address] [place] [address] 07724 Urea nitrogen/Creatinine [Mass ratio] 15.0 mg/mg Normal 4.6-16.2 [facility] Comment on above: Performed By: #### 1 360644492, 5364237540, 0187645988, 3603091437, 2518523, 90987245, 3683222331 #### [facility] (DEFAULT) [address] [place] [address] 85457 CBC w/ Auto Diffon 9 Erythrocyte distribution wid th (RBC) [Ratio] 12.1 % Normal 11.5-15.0 [facility] Comment on above: Performed By: #### 1 445107562, 8922338690, 1641440404, 7963525345, 9216008, 83327507, 7226597790 #### [facility] (DEFAULT) [address] [place] [address] Hematocrit (Bld) [Volume fraction] 39.2 % Normal 3 4.8-51.9 [facility] Comment on above: Performed By: #### 1 [id number], 0657220038, 2052942500, 8728996304, 6418945, 43436242, 0986792845 #### [facility] (DEFAULT) [address] [place] [address] Hemoglobin (Bld) [Mass/Vol] 13.9 g/dL Normal 11.8-17. 7 [facility] Comment on above: Performed By: #### 1 570916032, 7598705541, 9187988883, 3795332406, 9182347, 40921842, 2731599255 #### [facility] (DEFAULT) [address] [place] [address] Man Diff? Auto Normal [facility] Comment on above: Performed By: #### 1 728078515, 4565110988, 5185974106, 0720484800, 6516217, 97360672, 1685518088 #### [facility] (DEFAULT) [address] [place] [address] 14050 MCH (RBC) [Entitic mass] 33 pg Normal 24-34 [facility] Comment on above: Performed By: #### 1 853836650, 5433671200, 3694526938, 7686788616, 6037445, 08545275, 4778050400 #### [facility] (DEFAULT) [address] [place] [address] 95846 MCHC (RBC) [Mass/Vol] 36 g/dL Normal 26-37 [facility] Comment on above: Performed By: #### 1 109240064, 6871952251, 7678284241, 0346498495, 8034877, 25069358, 6674920084 #### [facility] (DEFAULT) [address] [place] [address] 80616 MCV (RBC) [Entitic vol] 94 fL Normal 81-100 M [facility] Comment on above: Performed By: #### 1 668760946, 6983436930, 1896203021, 5422740641, 6926810, 84168932, 3508111720 #### [facility] (DEFAULT) [address] [place] [address] 28150 Platelet mean volume (Bld) [Entitic vol] 10.2 fL Normal 6.3-10.2 [facility] Comment on above: Performed By: #### 1 786536862, 5191587397, 4370854531, 1188625509, 1917578, 31966597, 1077406746 #### [facility] (DEFAULT) [address] [place] [address] 44267 Platelets (Bld) [#/Vol] 223 x10 Normal 138-427 M [facility] Comment on above: Performed By: #### 1 914860509, 8425364214, 1317099549, 7729801820, 9240389, 51473297, 4543419069 #### [facility] (DEFAULT) [address] [place] [address] 99747 RBC (Bld) [#/Vol] 4.19 x10 Normal 3.70-5.30 [facility] Comment on above: Performed By: #### 1 [id number], 3029299239, 8951068924, 7915378892, 2237778, 73862451, 8228117726 #### [facility] (DEFAULT) [address] [place] [address] 83260 WBC (Bld) [#/Vol] 9.4 x10 Normal 3.5-10.5 [facility] Comment on above: Performed By: #### 1 226297893, 1608174989, 8430812134, 1049806211, 5828474, 79366310, 4739160252 #### [facility] (DEFAULT) [address] [place] [address] 58329 Co-Oximetry 2on 06-08-2019 Carboxyhemoglobin 5.3 % Critically abnormal 0.0-2.0 [facility] Comment on above: Order Comment: #3 Result Comment: Resu lts Called To Dr. Ross By Eleuterio Gary COLLISION ESTIMATOR And Read Back For Confirmation On 06/08/2019 13:21:10 EST. 100% NRB mask Performed By: #### 1 [id number], 7894388580, 5741825336, 7367493626, 6508683, 08542483, 4052895973 #### [facility] (DEFAULT) [address] [place] [address] 36535 Hemoglobin (Bld) [Mass/Vol] 12.8 g/dL Normal 12.0-17. 5 [facility] Comment on above: Order Comment: #3 Result Comment: Resu lts Called To Dr. Ross By Eleuterio Gary COLLISION ESTIMATOR And Read Back For Confirmation On 06/08/2019 13:21:10 EST. 100% NRB mask Performed By: #### 1 [id number], 4126875966, 7616243271, 3504717271, 6755610, 02966742, 9864991862 #### [facility] (DEFAULT) [address] [place] [address] 48047 MetHb 0.5 % Normal 0.0-1.5 [facility] Comment on above: Order Comment: #3 Result Comment: Resu lts Called To Dr. Ross By Eleuterio Gary COLLISION ESTIMATOR And Read Back For Confirmation On 06/08/2019 13:21:10 EST. 100% NRB mask Performed By: #### 1 [id number], 1306619340, 3284748668, 6644210244, 0970251, 21816071, 4908683790 #### [facility] (DEFAULT) [address] [place] [address] 05900 Oxygen saturation in Blood 60.1 % Low 95.0-100. 0 [facility] Comment on above: Order Comment: #3 Result Comment: Resu lts Called To Dr. Ross By Eleuterio Gary COLLISION ESTIMATOR And Read Back For Confirmation On 06/08/2019 13:21:10 EST. 100% NRB mask Performed By: #### 1 [id number], 5979720642, 6046890972, 7790328798, 8776246, 24122625, 8968729076 #### [facility] (DEFAULT) [address] [place] [address] 60388 Carboxyhemoglobin 14.1 % Critically abnormal 0.0-2.0 [facility] Comment on above: Order Comment: #2 Result Comment: Resu lts Called To Dr. Ross By Eleuterio Gary COLLISION ESTIMATOR And Read Back For Confirmation On 06/08/2019 10:51:31 EST. Pt. on 100% NRB mask Performed By: #### 1 [id number] #### [facility] (DEFAULT) [address] [place] [address] 44542 Hemoglobin (Bld) [Mass/Vol] 12.7 g/dL Normal 12.0-17. 5 [facility] Comment on above: Order Comment: #2 Performed By: #### 1 [id number] #### [facility] (DEFAULT) [address] [place] [address] 52622 MetHb 1.2 % Normal 0.0-1.5 [facility] Comment on above: Order Comment: #2 Performed By: #### 1 [id number] #### [facility] (DEFAULT) [address] [place] [address] 70405 Oxygen saturation in Blood 55.0 % Low 95.0-100. 0 [facility] Comment on above: Order Comment: #2 Performed By: #### 1 [id number] #### [facility] (DEFAULT) [address] [place] [address] 18052 Carboxyhemoglobin 31.1 % Critically abnormal 0.0-2.0 [facility] Comment on above: Result Comment: Resu lts Called To Dr. Ross By Eleuterio Gary COLLISION ESTIMATOR And Read Back For Confirmation On 06/08/2019 09:47:14 EST. Performed By: #### 1 [id number], 0411047969, 3166424804, 2386123665, 6525580, 38774538, 7819963605 #### [facility] (DEFAULT) [address] [place] [address] 61348 Hemoglobin (Bld) [Mass/Vol] 13.7 g/dL Normal 12.0-17. 5 [facility] Comment on above: Result Comment: Resu lts Called To Dr. Ross By Eleuterio Gary COLLISION ESTIMATOR And Read Back For Confirmation On 06/08/2019 09:47:14 EST. Performed By: #### 1 [id number], 2539946019, 8508503945, 3207609116, 0961060, 27670405, 7657931762 #### [facility] (DEFAULT) [address] [place] [address] 83368 MetHb 1.0 % Normal 0.0-1.5 [facility] Comment on above: Result Comment: Resu lts Called To Dr. Ross By Eleuterio Gary COLLISION ESTIMATOR And Read Back For Confirmation On 06/08/2019 09:47:14 EST. Performed By: #### 1 [id number], 3149135084, 1177178013, 4353873895, 8738694, 82302002, 7017937824 #### [facility] (DEFAULT) [address] [place] [address] 29638 Oxygen saturation in Blood 66.2 % Low 95.0-100. 0 [facility] Comment on above: Result Comment: Resu lts Called To Dr. Ross By Eleuterio Gary COLLISION ESTIMATOR And Read Back For Confirmation On 06/08/2019 09:47:14 EST. Performed By: #### 1 [id number], 8958509271, 0877581639, 8035784129, 1524036, 86961430, 9110627361 #### [facility] (DEFAULT) [address] [place] [address] 46209 ED Clinical Summaryon 2018 ED Clinical Summary [facility] - Emergency Department [address] [place] [address] 36175 ED Clinical Summary PERSON INFORMATION Name: GINA LI Age: 43 Years Sex: MALE : 1975 MRN: Acct#: Visit Reason: Carbon Monoxide (CO) exposure; MEDICAL EVALUATION Arrival: 06/08/2019 09:09:03 Discharge: 06/08/2019 14:06:00 LOS: 000 04:57 Check In: 06/08/2019 09:09:03 Checkout:06/08/2019 14:06:00 Address: [address] [facility] [address] [address] [facility] [address] PCP: Provider, None PROVIDER INFORMATION Provider Role Assigned Unassigned Mary Peña RN ED Nurse 06/08/2019 09:15:09 Sawyer Ross MD ED Provider 06/08/2019 09:18:50 VITALS INFORMATION Vital Sign Triage Latest Temperature Tympanic Temperature Temporal Artery Pulse Rate 96 bpm 72 bpm O2 Sat 97 % 100 % Respiratory Rate 20 br/min 20 br/min Blood Pressure /94 mmHg /94 mmHg MEDICAL INFORMATION Medications Given: Allergy Information: No known allergies PHYSICIAN DOCUMENTATION Patient: GINA LI Age: 43 years Sex: MALE : 1975 Associated Diagnoses: Carbon monoxide poisoning Author: Sawyer Ross MD Basic Information Time seen: Date & time 06/08/2019 09:07:00. Additional information: Chief Complaint from Nursing Triage Note : Chief Complaint 06/08/2019 9:10 EST Chief Complaint patient presents to the ER with c/o possible carbon monoxide poisoning. Headache . History of Present Illness Patient presents to room #4 by EMS. He was sleeping in a mobile home that had a kerosene heater that was running on vented. He also had a gas generator in another room that had an open window running as well. He complains of a mild headache 2/10 in severity. Does not feel short of breath. He has no other complaints. PMH positive for asthma. No prescription medications. Psychosocial: 1/2 pack/day cigarette smoker Review of Systems Const.: -Fever or Chills: No ENT: - Throat: pain: No Pulm.: - SOB: No - Cough: No Card.: - Pain or Pressure: No - Palpitations: No GI: - Nausea, Vomiting or Diarrhea: No - Pain: No Neuro.: Dizziness or Headache: No prior to this morning's event Allergies: - No medications. Health Status Allergies: Allergic Reactions (Selected) No known allergies. Past Medical/ Family/ Social History Medical history: No active or resolved past medical history items have been selected or recorded.. Surgical history: No active procedure history items have been selected or recorded.. Family history: No family history items have been selected or recorded.. Social history: Social & Psychosocial Habits Tobacco 06/08/2019 Smoking tobacco use: 10 or more cigarettes (1/ Electronic Cigarette/Vaping 06/08/2019 Electronic Cigarette Use: Never . Problem list: Active Problems (2) Asthma No history of . Physical Examination Vital Signs Vital Signs 06/08/2019 9:10 EST Temperature Oral 36.6 DegC Peripheral Pulse Rate 96 bpm Respiratory Rate 20 br/min Systolic Blood Pressure 136 mmHg Diastolic Blood Pressure 94 mmHg HI SpO2 97 % Oxygen Therapy Room air . Measurements 06/08/2019 9:15 EST Weight Dosing 83.900 kg 06/08/2019 9:15 EST Height/Length Dosing 180.000 cm 06/08/2019 9:10 EST Height/Length Estimated 180.000 cm Weight Estimated 83.900 kg . CONST: -Well-developed well-nourished. -Acute distress: no -Vitals reviewed. EYES: -Sclera normal and conjunctiva: clear bilaterally -PERRLA ENT: -T: -Normal pharynx, pink and good airway -Hydration: Moist -Erythema: no NECK: -Supple ([id number]-[id number]). CARD: -Rate and rhythm: Regular -Murmurs: No No edema or calf pain RESP: -Respiratory effort and chest excursion with respirations: Normal -Breath sounds equal bilaterally: Clear -Wheezes: No -Rales: No ABD: -Distended: No -Bowel sounds: Normal. -Deep palpation: Non-tender. NEURO: -Patient is alert -Oriented to person, place and time. -Appearance and judgment seems appropriate. Medical Decision Making Results review: Lab results : Lab Flowsheet 06/08/2019 13:01 EST Hgb 12.8 gm/dL O2 Sat 60.1 % LOW MetHb 0.5 % Carboxyhemoglobin 5.3 % CRIT 06/08/2019 10:45 EST Hgb 12.7 gm/dL O2 Sat 55.0 % LOW MetHb 1.2 % Carboxyhemoglobin 14.1 % CRIT 06/08/2019 9:20 EST Sodium Level 138.0 mmol/L Potassium Level 3.4 mmol/L LOW Chloride Level 104 mmol/L CO2 21 mmol/L Anion Gap 16.0 mmol/L Glucose Level 156.0 mg/dL HI BUN 14 mg/dL Creatinine Level 0.92 mg/dL BUN/Creat Ratio 15.0 eGFR AA >60 mL/min/1.73m2 NA eGFR Non AA >60 mL/min/1.73m2 NA Calcium Level 9.0 mg/dL Osmolality 279 mOsm/L NA WBC 9.4 x103/mcL RBC 4.19 x106/mcL Hgb 13.7 gm/dL Hgb 13.9 gm/dL Hct 39.2 % MCV 94 fL MCH 33 pg MCHC 36 gm/dL RDW 12.1 % Platelet 223 x103/mcL MPV 10.2 fL Auto Neut % 53 % Auto Lymph % 33 % Auto Crawford % 10 % Auto Eos % 4.7 % HI Auto Baso % 0.3 % Neut Abs# 5.0 x103/mcL Lymph Abs# 3.1 x103/mcL HI Crawford Abs# 0.9 x103/mcL HI Eos Abs# 0.4 x103/mcL Baso Abs# 0.0 x103/mcL O2 Sat 66.2 % LOW MetHb 1.0 % Carboxyhemoglobin 31.1 % CRIT Tube Collected Yes Tube Collected Yes Tube Collected Yes . Reexamination/ Reevaluation We will treat with 100% nonrebreather oxygen while we await carboxyhemoglobin levels. Carboxyhemoglobin level returned at 31.1. Patient is also cigarette smoker. His pH is 7.32. His headache is the same at a 2-3 over 10. He does note that he gets headaches that are very similar to this once or twice every week. There are no new symptoms concerning the headache. He does not have any nausea or other symptoms at this time. He remains on 100% nonrebreather O2. I discussed case and management with [facility] attending ED physician Dr. Parsons. He will investigate the indications for hyperbaric oxygen 10:45 AM: I discussed case again with [facility] ED . He notes that hyperbaric oxygen is not available today for use. Also check [facility]. Their hyperbaric is not available. Recheck patient. He states that his headache is improving. He has no other symptoms. Repeat carboxyhemoglobin is down to 14.1%. pH is up to 7.37. Rechecked patient at 11:30 AM. Continues to feel better. Still has minimal headache. 1:45 PM: Patient feels better comfortable going home. Carboxyhemoglobin level down to 5. Strongly encouraged him to quit smoking immediately. Patient will stay with another family member until he can get his gas and electricity restored to his mobile home. Impression and Plan Diagnosis Carbon monoxide poisoning ([id number] T58.91XA, Discharge, Medical) Plan Condition: Improved. Disposition: Discharged: to home. Patient was given the following educational materials: Carbon Monoxide Poisoning, Slgp-jb-Xpiz, Carbon Monoxide Poisoning, Auka-gc-Ypsr, Carbon Monoxide Poisoning, Wich-wz-Pqfc. Follow up with: None Provider Within As needed, only if needed Do not return to your mobile home until your normal heat source is restored. Never use a gasoline generator indoors. Stop smoking. Return with any problems.. Counseled: Patient, Family. DISCHARGE INFORMATION: Discharge Disposition: Home Discharge Location: PATIENT EDUCATION INFORMATION Instructions: Carbon Monoxide Poisoning, Aash-ct-[id number] Follow-Up: With: Address: When: None Provider Within As needed, only if needed Comments: Do not return to your mobile home until your normal heat source is restored. Never use a gasoline generator indoors. Stop smoking. Return with any problems. DIAGNOSIS: Carbon monoxide poisoning Patient Understands: Yes - Patient/family/caregiver verbalizes understanding of instructions given Comment: [facility] ED Note - Physicianon 2018 ED Note - Physician Patient: GINA LI MRN: [id number] Age: 43 years Sex: MALE : 1975 Associated Diagnoses: Carbon monoxide poisoning Author: Sawyer Ross MD Basic Information Time seen: Date & time 06/08/2019 09:07:00. Additional information: Chief Complaint from Nursing Triage Note : Chief Complaint 06/08/2019 9:10 EST Chief Complaint patient presents to the ER with c/o possible carbon monoxide poisoning. Headache . History of Present Illness Patient presents to room #4 by EMS. He was sleeping in a mobile home that had a kerosene heater that was running on vented. He also had a gas generator in another room that had an open window running as well. He complains of a mild headache 2/10 in severity. Does not feel short of breath. He has no other complaints. PMH positive for asthma. No prescription medications. Psychosocial: 1/2 pack/day cigarette smoker Review of Systems Const.: -Fever or Chills: No ENT: - Throat: pain: No Pulm.: - SOB: No - Cough: No Card.: - Pain or Pressure: No - Palpitations: No GI: - Nausea, Vomiting or Diarrhea: No - Pain: No Neuro.: Dizziness or Headache: No prior to this morning's event Allergies: - No medications. Health Status Allergies: Allergic Reactions (Selected) No known allergies. Past Medical/ Family/ Social History Medical history: No active or resolved past medical history items have been selected or recorded.. Surgical history: No active procedure history items have been selected or recorded.. Family history: No family history items have been selected or recorded.. Social history: Social & Psychosocial Habits Tobacco 06/08/2019 Smoking tobacco use: 10 or more cigarettes (1/ Electronic Cigarette/Vaping 06/08/2019 Electronic Cigarette Use: Never . Problem list: Active Problems (2) Asthma No history of . Physical Examination Vital Signs Vital Signs 06/08/2019 9:10 EST Temperature Oral 36.6 DegC Peripheral Pulse Rate 96 bpm Respiratory Rate 20 br/min Systolic Blood Pressure 136 mmHg Diastolic Blood Pressure 94 mmHg HI SpO2 97 % Oxygen Therapy Room air . Measurements 06/08/2019 9:15 EST Weight Dosing 83.900 kg 06/08/2019 9:15 EST Height/Length Dosing 180.000 cm 06/08/2019 9:10 EST Height/Length Estimated 180.000 cm Weight Estimated 83.900 kg . CONST: -Well-developed well-nourished. -Acute distress: no -Vitals reviewed. EYES: -Sclera normal and conjunctiva: clear bilaterally -PERRLA ENT: -T: -Normal pharynx, pink and good airway -Hydration: Moist -Erythema: no NECK: -Supple (ucxr-am-hgbpo). CARD: -Rate and rhythm: Regular -Murmurs: No No edema or calf pain RESP: -Respiratory effort and chest excursion with respirations: Normal -Breath sounds equal bilaterally: Clear -Wheezes: No -Rales: No ABD: -Distended: No -Bowel sounds: Normal. -Deep palpation: Non-tender. NEURO: -Patient is alert -Oriented to person, place and time. -Appearance and judgment seems appropriate. Medical Decision Making Results review: Lab results : Lab Flowsheet 06/08/2019 13:01 EST Hgb 12.8 gm/dL O2 Sat 60.1 % LOW MetHb 0.5 % Carboxyhemoglobin 5.3 % CRIT 06/08/2019 10:45 EST Hgb 12.7 gm/dL O2 Sat 55.0 % LOW MetHb 1.2 % Carboxyhemoglobin 14.1 % CRIT 06/08/2019 9:20 EST Sodium Level 138.0 mmol/L Potassium Level 3.4 mmol/L LOW Chloride Level 104 mmol/L CO2 21 mmol/L Anion Gap 16.0 mmol/L Glucose Level 156.0 mg/dL HI BUN 14 mg/dL Creatinine Level 0.92 mg/dL BUN/Creat Ratio 15.0 eGFR AA >60 mL/min/1.73m2 NA eGFR Non AA >60 mL/min/1.73m2 NA Calcium Level 9.0 mg/dL Osmolality 279 mOsm/L NA WBC 9.4 x103/mcL RBC 4.19 x106/mcL Hgb 13.7 gm/dL Hgb 13.9 gm/dL Hct 39.2 % MCV 94 fL MCH 33 pg MCHC 36 gm/dL RDW 12.1 % Platelet 223 x103/mcL MPV 10.2 fL Auto Neut % 53 % Auto Lymph % 33 % Auto Crawford % 10 % Auto Eos % 4.7 % HI Auto Baso % 0.3 % Neut Abs# 5.0 x103/mcL Lymph Abs# 3.1 x103/mcL HI Crawford Abs# 0.9 x103/mcL HI Eos Abs# 0.4 x103/mcL Baso Abs# 0.0 x103/mcL O2 Sat 66.2 % LOW MetHb 1.0 % Carboxyhemoglobin 31.1 % CRIT Tube Collected Yes Tube Collected Yes Tube Collected Yes . Reexamination/ Reevaluation We will treat with 100% nonrebreather oxygen while we await carboxyhemoglobin levels. Carboxyhemoglobin level returned at 31.1. Patient is also cigarette smoker. His pH is 7.32. His headache is the same at a 2-3 over 10. He does note that he gets headaches that are very similar to this once or twice every week. There are no new symptoms concerning the headache. He does not have any nausea or other symptoms at this time. He remains on 100% nonrebreather O2. I discussed case and management with [facility] attending ED physician Dr. Parsons. He will investigate the indications for hyperbaric oxygen 10:45 AM: I discussed case again with [facility] ED DrNelson. He notes that hyperbaric oxygen is not available today for use. Also check [facility]. Their hyperbaric is not available. Recheck patient. He states that his headache is improving. He has no other symptoms. Repeat carboxyhemoglobin is down to 14.1%. pH is up to 7.37. Rechecked patient at 11:30 AM. Continues to feel better. Still has minimal headache. 1:45 PM: Patient feels better comfortable going home. Carboxyhemoglobin level down to 5. Strongly encouraged him to quit smoking immediately. Patient will stay with another family member until he can get his gas and electricity restored to his mobile home. Impression and Plan Diagnosis Carbon monoxide poisoning ([id number] T58.91XA, Discharge, Medical) Plan Condition: Improved. Disposition: Discharged: to home. Patient was given the following educational materials: Carbon Monoxide Poisoning, Nphv-rq-Hgjm, Carbon Monoxide Poisoning, Ircn-cq-Cofw, Carbon Monoxide Poisoning, Yela-tg-Mqub. Follow up with: None Provider Within As needed, only if needed Do not return to your mobile home until your normal heat source is restored. Never use a gasoline generator indoors. Stop smoking. Return with any problems.. Counseled: Patient, Family. [Electronically Signed on: 06/08/2019 13:54 EST] Sawyer Ross MD [Verified on: 06/08/2019 13:54 EST] Sawyer Ross MD [facility] ED Note-Nursingon 06-08-2019 ED Note-Nursing Patient presents to the ER via [facility] for carbon monoxide poisoning. Patient states he started up a generator to run an electric heater, there is no electricity in the house. Patient was also running a kerosene heater. There was no ventilation in the house and the fumes filled into the house. The girlfriend called 911, the patient was unable to get up out of bed. Pack Worker Supervisor had to pull the patient out of the house. EMS stated the CO monitors were going off as they were walking up to the house. The readings are critically high, they are not allowed to enter the residence until it is cleared by the fire hose curer. associate chief nurse is discussing options for the patient and his girlfriend to stay. The patient states he might be able to stay with his daughters home in [place]. Patient is normal sinus rhythm, 78 heart rate, 97% on room air. Patient states he has a headache and is rating it at a 2/10. patient is shivering, afebrile. Patient states he is feeling ok. is on non rebreather at 10L sating at 99% currently. Normal [facility] ED Patient Education Noteon 06-08-2019 ED Patient Education Note Education Dre porras Pulmonary Medicine Carbon Monoxide Poisoning Carbon monoxide poisoning is sickness from breathing in carbon monoxide gas. This is an emergency. You need to get medical help right away. Follow these instructions at home: General instructions ? Do not go back to the area where you breathed in the gas. It must be aired out (ventilated) before it is safe to go back. ? Take rzch-myl-uizqaxd and prescription medicines only as told by your doctor. ? Do not use products that have nicotine or tobacco. These include cigarettes and e-cigarettes. If you need help quitting, ask your doctor. ? Return to your normal activities as told by your doctor. Ask what activities are safe for you. ? Keep all follow-up visits as told by your doctor. This is important. How is this prevented? ? Put a carbon monoxide detector in your home. Change the batteries every 6 months. ? Have gas stoves and furnaces checked one time each year. ? Clean all chimneys and flues at least one time each year. ? Have the exhaust system in your car checked one time each year. ? Do not keep a car motor on in a closed garage. ? Do not sleep in a car with the motor on. ? Make sure that all rooms heated with gas, coal, charcoal, or wood are aired out well. Get help right away if: ? You or someone else may have breathed in carbon monoxide gas. If this happens, get away from the area right away. Get medical help right away. Call your local emergency services (911 in the [place] Do not drive yourself to the hospital. Summary ? Carbon monoxide poisoning is sickness from breathing in carbon monoxide gas. ? Do not go back to the area where you breathed in the gas. It must be aired out (ventilated) before it is safe to go back. ? If you think you or someone else has breathed in carbon monoxide gas, get away from the area. Get help right away. This information is not intended to replace advice given to you by your health care provider. Make sure you discuss any questions you have with your health care provider. Document Released: 12/24/2012 Document Revised: 02/06/2018 Document Reviewed: 07/04/2017 [employer] Patient Education ? 2018 [employer]. Normal [facility] ED Patient Summaryon 019 ED Patient Summary [facility] - Emergency Department [address] [id number] PATIENT DISCHARGE INSTRUCTIONS Patient Information Name: GINA LI Age: 43 Years Date of : 1975 Reason For Visit: Carbon Monoxide (CO) exposure; MEDICAL EVALUATION Arrival Time: 06/08/2019 09:09:03 Primary Care Physician: Provider, None Attending Physician: Sawyer Ross MD Comment: Visit Diagnosis: Diagnoses This Visit Carbon Monoxide (CO) exposure ([id number]) Carbon monoxide poisoning (T58.91XA) Prescription Information: If you have been given a prescription for narcotics, seek immediate medical attention if you have any difficulty breathing or any sudden status changes such as confusion and sleepiness. If you or anyone you know is experiencing suicidal thoughts, mental health, alcohol and/or drug addiction problems; contact the [facility] 29/01 Crisis Hotline -Text 4HOPE to 695928. If you received any narcotics, sedation, or any other medication that causes drowsiness for the next 24 hours, unless otherwise directed: ? Do not drive a car. ? Do not operate machinery such as power tools, lawn mowers, drills, sewing machines, or stoves ? Avoid alcoholic beverages and drugs for allergies, nerves, or sleep ? Do not make important personal or business decisions or sign any legal documents With: Address: When: None Provider Within As needed, only if needed Comments: Do not return to your mobile home until your normal heat source is restored. Never use a gasoline generator indoors. Stop smoking. Return with any problems. Medication Information: The exam and treatment you received today in the [facility] Emergency Department were for an urgent problem and are not intended as complete care. It is important for you to follow up with a doctor, nurse practitioner, or physician?s fiscal assistant for ongoing care. If your symptoms become worse or you do not improve as expected and you are unable to reach your usual health care provider, you should return to the Emergency Department, we are available 24 hours a day. For those patients who have received Radiology results, the interpretation of your X-ray as given to you by our Emergency Department physician is only a preliminary report. The Radiologist will review your films and if there is a change in the diagnosis you will be notified by phone. Please make sure you have provided a working phone number so we can reach you if necessary. In the event that you had a lab culture while you were a patient in the Emergency Department, you will be notified by phone if there is a need to change your antibiotic. Please make sure you have provided a working phone number so we can reach you if necessary. [facility] Emergency Department has provided you with a complete list of medications post discharge. Please inform your donor recruitment manager/provider of your visit and for further instruction on these medications. Any specific questions regarding your chronic medications and dosages should be discussed with your primary care physician(s) and/or pharmacist. Visit Information Allergies: Substance Reaction Symptoms Type Comments No known allergies Drug Vital Signs: Vitals and Measurements this Visit (last charted value for your 06/08/2019 visit) Vital Signs This Visit Temperature Oral: 36.6 DegC Peripheral Pulse Rate: 72 bpm Respiratory Rate: 20 br/min Systolic Blood Pressure: 117 mmHg Diastolic Blood Pressure: 75 mmHg SpO2: 100 % O2 Flow: 10 L/min Oxygen Therapy: Nonrebreather mask Measurements This Visit Height/Length Dosin.000 cm Height/Length Estimated: 180.000 cm Weight Dosin.900 kg Weight Estimated: 83.900 kg Problems List: Problem Onset Comments Asthma No history of Patient Education Carbon Monoxide Poisoning Carbon monoxide poisoning is sickness from breathing in carbon monoxide gas. This is an emergency. You need to get medical help right away. Follow these instructions at home: General instructions ? Do not go back to the area where you breathed in the gas. It must be aired out (ventilated) before it is safe to go back. ? Take ihps-fsj-kbdshie and prescription medicines only as told by your doctor. ? Do not use products that have nicotine or tobacco. These include cigarettes and e-cigarettes. If you need help quitting, ask your doctor. ? Return to your normal activities as told by your doctor. Ask what activities are safe for you. ? Keep all follow-up visits as told by your doctor. This is important. How is this prevented? ? Put a carbon monoxide detector in your home. Change the batteries every 6 months. ? Have gas stoves and furnaces checked one time each year. ? Clean all chimneys and flues at least one time each year. ? Have the exhaust system in your car checked one time each year. ? Do not keep a car motor on in a closed garage. ? Do not sleep in a car with the motor on. ? Make sure that all rooms heated with gas, coal, charcoal, or wood are aired out well. Get help right away if: ? You or someone else may have breathed in carbon monoxide gas. If this happens, get away from the area right away. Get medical help right away. Call your local emergency services (911 in the [place] Do not drive yourself to the hospital. Summary ? Carbon monoxide poisoning is sickness from breathing in carbon monoxide gas. ? Do not go back to the area where you breathed in the gas. It must be aired out (ventilated) before it is safe to go back. ? If you think you or someone else has breathed in carbon monoxide gas, get away from the area. Get help right away. This information is not intended to replace advice given to you by your health care provider. Make sure you discuss any questions you have with your health care provider. Document Released: 12/24/2012 Document Revised: 02/06/2018 Document Reviewed: 07/04/2017 [employer] Patient Education ? 2019 [employer] Viruses or Bacteria What?s got you sick? Antibiotics only treat bacterial infections. Viral illnesses cannot be treated with antibiotics. When an antibiotic is not prescribed, ask your healthcare professional for tips on how to relieve symptoms and feel better. Usual Cause Illness Viruses Bacteria Antibiotic Needed Cold/Runny Nose NO Bronchitis/Chest Cold (in otherwise healthy children and adults) NO Whooping Cough Yes Flu NO Strep Throat Yes Sore Throat (except strep) NO Fluid in the middle ear (otitis media with effusion) NO Urinary Tract Infection Yes Antibiotics Aren?t Always the Answer www.cdc.gov/getsmart GET SMART Know When Antibiotics Work [place] Department of Health and Human Services Centers for Disease Control and Prevention March 2014 Normal [facility] 06-08-2019 Tube Collected Yes [facility] Comment on above: Performed By: #### 1 [id number] #### [facility] (DEFAULT) [address] [place] [address] Encounters Encounter Date Encounter Type Care Provider Facility Start: 05-30-2023 End: 05-30-2023 ambulatory [facility] Start: 04-17-2023 End: 04-17-2023 ambulatory [facility] Start: 11-08-2022 End: 11-09-2022 ambulatory DEBORAHBARRETT SWIFT . Facility:[facility] Start: 08-14-2022 End: 08-15-2022 ambulatory [facility] Facility:[facility] Start: 02-27-2022 End: 02-28-2022 ambulatory DEBORAH SAMSA . Facility:[facility] Start: 02-20-2022 End: 02-21-2022 ambulatory DEBORAH SAMSA . Facility:[facility] Start: 02-20-2022 End: 02-21-2022 ambulatory DEBORAH SAMSA . Facility:[facility] Payers Date Payer Category Payer Unknown [id number] [id number] [id number] 1975 Unknown [id number] 2.16.84 [id number] 1975 Unknown [id number] 2.16.84 [id number] 1975 Unknown [id number] 2.16.84 [id number] 1975 Unknown [id number] 2.16.84 [id number] 1960 Unknown [id number] Clinical Note 05-30-2023 Note Date & Type Note Facility 05-30-2023 Note Patient: Gina Li Procedure Information Date/Time: 05/30/23829 Procedure: Coronary angiography (Left) Location: [facility] 3 / [facility] (Cath) Providers: Alexander Richard MD Clinical information reviewed: Tobacco Allergies Meds Med Hx Surg Hx Fam Hx Physical Exam Airway Mallampati: III TM distance: >3 FB Neck ROM: full Cardiovascular Rhythm: regular Rate: normal Dental Pulmonary - normal exam Breath sounds clear to auscultation Abdominal (+) obese Abdomen: soft Anesthesia Plan ASA 4 (Moderate sedation) Anesthetic plan and risks discussed with patient. Use of blood products discussed with patient who. Plan discussed with fellow and attending. Additional Equipment Requests [facility] Progress note 04-17-2023 Note Date & Type Note Facility 04-17-2023 Note Cardiology Clinic No te Chief Complaint: abnormal stress test HPI: Gina Li is a 47 y.o. male with a past medical history including tobacco abuse who was referred to Cardiology clinic for evaluation of chest pain and abnormal stress. Patient reports symptoms of exertional chest pain over the past few months. He reports some associated shortness of breath. He denies any syncope, LE edema, orthopnea, PND, palps, or bleeding. Patient denies any previous history of CVA, PVD, DM, HTN, Depressed LVEF, and CAD. Nuclear MPI was performed and demonstrates area of fixed defect in the apex. Cardiology ROS: GENERAL: Denies fever, chills, night sweats, weight loss. HEENT: Denies changes in vision, photophobia, changes in hearing, epistaxis, oral bleeding. CARDIOVASCULAR: as per HPI RESPIRATORY: Denies SOB, coughing, wheezing GI: Denies abdominal pain, nausea/vomiting, heartburn, melena/hematochezia. RENAL: Denies dysuria, hematuria, flank pain. MSK: Denies muscle weakness/pain, arthralgias/joint pain. NEUROLOGIC: Denies LOC, weakness, numbness, headaches. SKIN: Denies abnormal rashes or bleeding. PSYCH: Denies significant anxiety, depression, sleep disturbances. Past Medical History He has a past medical history of Asthma, Hyperlipidemia, and Hypertension. Surgical History He has a past surgical history that includes Cholecystectomy. Social History He reports that he quit smoking 9 days ago. His smoking use included cigarettes. He uses smokeless tobacco. He reports that he does not currently use alcohol. No history on file for drug use. Family History Family History Problem Relation Name Age of Onset Atrial fibrillation Mother Medications Current Outpatient Medications on File Prior to Visit Medication Sig Dispense Refill Advair Diskus 250-50 mcg/dose diskus inhaler inhale 1 puff by mouth and INTO THE LUNGS twice a day Rinse mouth after use albuterol 90 mcg/actuation inhaler Inhale 2 puffs every 4 (four) hours if needed. aspirin 81 mg EC tablet Take 81 mg by mouth in the morning. atorvastatin (Lipitor) 20 mg tablet Take 20 mg by mouth at bedtime. buPROPion (Zyban) 150 mg 12 hr tablet Take 150 mg by mouth in the morning and at bedtime. losartan (Cozaar) 25 mg tablet Take 25 mg by mouth in the morning. montelukast (Singulair) 10 mg tablet Take 10 mg by mouth in the morning. omeprazole (PriLOSEC) [address] capsule Take 40 mg by mouth if needed. No current facility-administered medications on file prior to visit. Allergies Patient has no known allergies. Physical Exam VITAL SIGNS: BP 136/86 (BP Location: Left arm, Patient Position: Sitting) Pulse 92 Ht 1.499 m (4' 11 ) Wt 102 kg (224 lb) SpO2 96% BMI 45.24 kg/m??? Constitutional: Well developed, Well nourished, No acute distress, Non-toxic appearance. HENT: Normocephalic, Atraumatic, Bilateral external ears have normal appearance, Nose appears normal, nares are patent. Eyes: PERRLA, EOMI, Conjunctiva normal, No discharge. Neck: Normal range of motion, No tenderness, Supple, No stridor. No cervical lymphadenopathy noted. Cardiovascular: Normal heart rate, Normal rhythm, No murmurs, No rubs, No gallops. Thorax & Lungs: Normal breath sounds, No respiratory distress, No wheezing, No chest tenderness to palpation. Abdomen: Bowel sounds normal, Soft, Nontender, No masses, No pulsatile masses. Skin: Warm, Dry, No erythema, No rash. Back: No tenderness, No CVA tenderness. Extremities: Intact distal pulses, No edema, No tenderness, No cyanosis, No clubbing. Musculoskeletal: Grossly normal strength in extremities Neurologic: Alert & oriented x 3, no gross focal neurological deficits Psychiatric: Affect normal, Judgment normal, Mood normal. Impression: -Chest pain -Abnormal stress -Tobacco abuse Plan: -Given typical chest pain and abnormal stress test with fixed defect, recommend invasive coronary angiography with possible PCI to delineate coronary anatomy and identify any high risk lesions. -Procedure was explained to patient at length and in detail. Risks, benefits, and alternatives were discussed. -Patient is informed that risks of this invasive procedure include, but are not limited to, bleeding, hematoma, kidney injury, CVA, arrythmia requiring defibrillation, need for emergent open heart surgery, and . Patient understands these risks and wishes to proceed. -Continue aspirin, statin -Echo ordered to assess LVEF, wall motion, valvular funciton -I spent over 6 minutes counseling the patient on the importance of smoking cessation. I emphasized the risk of continued smoking. I offered the patient various resources. Patient respectfully declines at this time. -Optimize medical management -Aggressive risk factor modification -Plan of care discussed with patient. All questions were answered. Patient voices understanding and is agreeable with current plan. -Patient was e (more content not included)... [facility] Progress note 04-17-2023 Note Date & Type Note Facility 04-17-2023 Note New patient here to establish care. Ref from Dr. Swift for chest pain. He had stress test last week. He quit smoking about 3 weeks ago but has started chewing tobacco. He does admit to dyspnea with exertion, and sometimes gets lightheaded. Says symptoms have been going on for a few years now. Review of Systems Cardiovascular: Positive for chest pain and dyspnea on exertion. Musculoskeletal: Positive for back pain. Neurological: Positive for light-headedness. All other systems reviewed and are negative. [facility] Clinical Note 11-08-2022 Note Date & Type Note Facility 11-08-2022 Note PROCEDURE: XR CHEST 2 V DATE: 11/08/2022 7:50 AM CDT COMPARISONS: 02/20/2022 CLINICAL INDICATION: 46 years Male Exacerbation of mild persistent asthma FINDINGS: The cardiomediastinal silhouette and pulmonary vasculature are within normal limits. The lungs are clear. There is no evidence of pleural effusion or pneumothorax. IMPRESSION: Chest radiograph is within normal limits. Electronically authenticated by: DAVID CRUZ Date: 2022-11-08 09:09 [facility] Summary Purpose Family History No Family History Records FoundNo Family History Records FoundNo Family History Records Found Advance Directives No Advanced Directives Records FoundNo Advanced Directives Records FoundNo Advanced Directives Records Found Additional Source Comments (unrecognized sect ion and content) No Status Records FoundNo Status Records FoundNo Status Records Found INFORMATION SOURCE (unrecogn ized section and content) DATE CREATED AUTHOR 06/12/2019 [facility] l DATE CREATED AUTHOR AUTHOR'S ORGANIZ ATION 11/15/2022 [facility] DATE CREATED AUTHOR AUTHOR'S ORGANIZ ATION 06/17/2023 [facility] FOR RECORDS PERTAINING TO PATIENTS WHO ARE OR HAVE BEEN ENROLLED IN A CHEMICAL DEPENDENCY/SUBSTANCEABUSE PROGRAM, SOME INFORMATION MAY BE OMITTED. This clinical summary was aggregated from multiple sources. Caution should be exercised in using it in the provision of clinical care. This summary normalizes information from multiple sources, and as a consequence, information in this document may materially change the coding, format and clinical context of patient data. In addition, data may be omitted in some cases. CLINICAL DECISIONS SHOULD BE BASED ON THE PRIMARY CLINICAL RECORDS. [employer] provides no warranty or guarantee of the accuracy or completeness of information in this document.
== END 2023-05-16 10:22 | disposition home or self-care (01) ==
LOC: LAB 10:22
PROVIDERS: PCP Nurse Practitioner Primary Care; Visit Provider Internal Medicine Cardiovascular Disease
DX: R07.9 Chest pain, unspecified (principal)
CPT/HCPCS: 36415; 80048; 85025

== ENCOUNTER 2023-09-13 12:27 | Outpatient (OUT) | payer BC, SELFPAY ==
--- OUTSIDE RECORDS SUMMARY | 2023-09-13 12:33 | XMS_ITS | CCD ---
Author Name Unknown Address [address] [place] [address] Organization [facility] Care Team Providers Care Manager Engagement Name Role Phone SAMSA ., DEBORAH Attending Unavailable DR BRYN AMADOR Consulting Unavailable SAMSA ., DEBORAH Admitting Unavailable [facility] Primary Care Unavailable SAMSA ., DEBORAH Consulting Unavailable SAMSA ., DEBORAH Attending Unavailable SAMSA ., DEBORAH Consulting Unavailable SAMSA ., DEBORAH Admitting Unavailable [facility] Primary Care Unavailable SAMSA ., DEBORAH Attending Unavailable SAMSA ., DEBORAH Consulting Unavailable SAMSA ., DEBORAH Admitting Unavailable [facility] Primary Care Unavailable SHAMMO, VANCE Attending Unavailable SHAMMO, VANCE Consulting Unavailable SHAMMO, VANCE Admitting Unavailable [facility] Primary Care Unavailable SAMSA ., DEBORAH Admitting Unavailable [facility] Primary Care Unavailable SAMSA ., DEBORAH Attending Unavailable SAMSA ., DEBORAH Consulting Unavailable DAVID CRUZ Consulting Unavailable ALGHOTHANI, MOHAMAD Admitting Unavailable ALGHOTHANI, MOHAMAD Attending Unavailable ALGHOTHANI, MOHAMAD Attending Unavailable CECILIA RAMOS Attending Unavailable ALGHOTHANI, MOHAMAD Referring Unavailable Favian Lugo MD Attending UnavailFavian Loyola MD Admitting UnavailFavian Loyola MD Primary Care Unavailabl e Problems Problem Classification Problem Date Documented Date Episodic/Chronic Asthma (8 sources) Mild persistent asthma with (acute) exacerbation; Translations: [Mild persistent asthma, uncomplicated] Onset: 02-20-2022 Chronic Coronary atherosclerosis and other heart disease (4 sources) Atherosclerotic heart disease of [place] coronary artery without angina pectoris; Translations: [Other forms of angina pectoris] Onset: 04-17-2023 Chronic Disorders of lipid metabolism (3 sources) Mixed hyperlipidemia; Translations: [MIXED HYPERLIPIDEMIA] Onset: 08-16-2022 Chronic Essential hypertension (4 sources) Essential (primary) hypertension; Translations: [ESSENTIAL PRIMARY HYPERTENSION] Onset: 08-14-2022 Chronic Nonspecific chest pain (4 sources) Precordial pain; Translations: [Chest pain, unspecified] Onset: 04-17-2023 Episodic [...] Name Value Interpretation Reference Range Facil ity Coding Summaryon 09-04-2023 Coding Summary HTMLBase 64 AwivzeerTFx4gMg+PGhl YWQ+CM8QMIHpB51jsKDj qF7xX0XYBUtETcifPUPS AOyNRiKxrfYqCG1dhTBi ZXJu IC8+VX4kOSXuMpszqKZd l9V6pYG0S58qtd3uLTdq lNO0AWAjPoJbqlqix4we iWf8QNicRrorFoWm IZGtpQ47ADB0oB89Tb43 qEOtfAWji3veeFq7PyJz UZEvIEJ9oQpqMPhgt3Lf CXLmF94faYMdb2S2 IGNvbGxhcHNlOyBlbXB0 pV4sXQdqivxot9kzaeyc Xwt9bi89jKTbg8Q1tXZ1 O2XytsE5UASbzSRe GoranNTReZ2eikvib3br gteoPtQoAIZlNBa3RMe9 SLIvzCzvGvObHF53HWJ5 ATZtlyMwZ2AzNHNv uVckEdA4l8W6Ld8SQ2IW DsrcB4TKUFWBDInpgTT+ HX88sv77P7QkZrqmUfi2 ZVCdDMO3vAC0zW3h XNGaXFipk2X7qEI5E1Ol njNrwm3ll5ymLYQlGNuv N21mdTWor8D1MDOgjVH5 ZWFapChfXmCuyI44 Oyc+KFZgkTbfg4UgVkrn e9iwv8kdvAb9PjjvYHGw umUuaLwfAIE1j0NcBh1a EPXrsNH0zFC5lU1q FnQtOmH7LKwsV014UlCe nIAhCwvuS16zQ0ImwQA+ UMIhYsh2REWbyLifLZ5l J9QgMIDjrycgwUZk vYvfEJ8dSOGxhptbMDEi qV2eZZWtE9k7XxDjRhU7 HJhqA2BrREYfznqjSg75 nB3uKySmRqC6TLuy F5OqhtK3WYEuyEMsGUqu EFQ1H97dz5V7KNBoVNBl YRH7vUD4pD9zsJffjeui bGVmdDsgdmVydGlj ADukCUybN174YSGzkPvt PkNvZGluZyBEYXRlOiAg MDIvMjcvMjAyNDwvdGQ+ MMTdZYJ6vFnmVPBt wPZrAUrsNk3dzGrzrVzh WL8mIUDptmczLHVgyI1y YOLbmMLtzWzuIO0yGEQw xajvm341RdJqFUV8 TBCbxXJkA5SctQ7mBsUg OTQhAWGeE1QznRHfSAsb Q003VLkqWpK5KBEvueZk P3LiGDCjbBbaZhD7 r0A9Gi6In8AswrxuQ1Jc fKKjLoVeJacvZFz4J9Zj PjwvdHI+ZO64TJOnHK02 UIz4OKY2eJifJXlh SUAiK4EleB7dYdPgMNIh ZGRkOyc+PHRhYmxlIHdp ZHRoPScxMDAlJyBzdHls GG3pQk8cOWSyBCTd yPxhdPXwPoTzv6snNYEy XGosHQ5dqFxoP4XlvOX0 NOVqt8u0Bk36Y26xJ8Qj dXA+SCDewLA7tGG2 aL1mSfQhXqI0GMqyR004 XsOkkHEfDpamb4xvh5fc zIk3TdW4JMFkawXiwWwh PXV5w5IhOw23F51f IHdpZHRoPSIxNSUiIHZh dHmoup4uqU9kTu3+PGNv tSI6bWK4iJ4lXdJbVdQ4 SXrkJ101InPtaJQo Wtqor0brg9zjeOr8LgOe HNYxkjZcgJvkWSW9d2Tt Lu29U9GdpErry2NhBji0 gb63yMZvi5G8eJR3 K1SaVZWuvjiqcCHywMrt EJ6xMMBlfmirBHKdkM6w APZjU1l1IwLeBfL9NBqv B5OlmpY7JWTliJYt RBHamVDKtZ1tqqjbn9jw kzkxGiHrWXHcVQo0CJl8 CYSdnCaiNgTcHTG8UcE3 JUJ6sSKdzO2zlMht lrokrX6fGku+ZIP1bAJt jWVCWL4sSplikAL+PHRk GFA3qXlmHCjbTGXesM3u BFElV9u5RgNuDhW0 TKyrE5AngkV3RSCtkERm TFUxwLVMoJ8rqccos0xi nsgoOsStMMHeXGb4DMv4 LWFsaWduOiBsZWZ0 LvF2LMB8qDZxrE2rhYod fyytsH6vEit+QmlydGgg SYC2JId6W3QxXba4BIDz dBiiRO4vxYXzQQub Gl4skWkzrPcqCA7mWHXd tktxh558UpUtp4erTZQg hPMlBBpqHOW4L49nk5X1 YUJlTROxGRF1aEK5 zY8pfYcgtphlnUFoqPvz heKbwIcfOJdiFFmgE824 IDRbbUkvMbTgDLk7G1Qe Inl9HNTbuCgqDA4v iDOkJOssQl3zzKrneHtw VD7ySWBuwxmcf158BfRj o4xxBAWynTLhZYnxGBP4 I63wm3H6YGVwNHVl YYO9qIY7qX4ynIpexdvx bGVmdDsgdmVydGljYWwt BPfkU063EJEbxTlhBjNg kHs3T7DoDgg3XWLd vPddLB5oaHSzGPflBe8z vYcncAoxDV7bQWVdpahj y838BxVwu9fzNPMnwUPb ZCsbFLZ0Z26da2M1 RYKgXSShHOH9jEL5mI3e bGlnbjogbGVmdDsgdmVy aMvqATthFFtiO197XVHf cDsnPlBhdGllbnQg YTpoJMb7S2NmDemvaAX+ SM58FAMjWB63kETdpPTn a0kruAk9IhJgQNEmNTN1 rAgjFDbvk6RdOUMy F53dtEQes0B7HZPnlEcx eAWjPvRghIB7yN3jWNpp xwnzu1ldearmEyssg3xz sj79tS39L11gDPyi ZHRoPSIzMCUiIHZhbGln gf5tkA5zJk1+PGNvbCB3 gVM9cZ3lGSDsPiR3YMal R919VbRnzCNaFshw n7glf7ylbKp5SuE1FNWh dcVtjZegQIB4d4KvSa50 D34sBFfjGWZmXXVdIAMh UPLfsGdehf9nnI8e Ii8+SNBkuON3cXX7gU3p BaJlYbD6GRdlF545SuVo qCIbTuvsI09bJ7WdpGS+ MTMsKll0QHXsnBjj YZ2omAWkQHbnGa6iGBX0 NxDiJvKgBOscM1WgLSGs ujtwjxlxwFQ6EMMiBOVm mF82Am8ssZobLCNk uOLFvS0ingcwn3iwdhav MgAsVYZbGMr2TJw1UOPp pJuuXuSmCXK6ZvS8BMY7 bUKawG8doVohtwei kH2jR3GwFOEgnefkFx27 tE2fMmMmIlL2ESwnAyi+ K3uIGBkYTBZNUJGZB4TC KTaPTdJCVPcHIQ97 WK59zZAsl8P8sJK7V6Gw MZSleerarbpwmOA3BIJm IASdrG97hHIjXLewSf9z l0C6h948JRWnAWUd oB11Hu0cmLwlGCItuUUS nY9ldhbae5tgbigyOtSs KSMeROv8CSv9NRAvyKtu LuTrRGL2NqB1SCA2 oWCqcE2byTzpjltvoP1g Oyc+TBCmElXhKBe7CPgp dGQ+RFJcTLS9oObqRLdq VVTbuL0sSKCxB0o3 YgFuDaZ4UZxsA4GuVVBw nxwmKm24vZ7aLcVhZiY3 VEfcF4YjjoU8FQZxdEDu WJfmQAM4G14zl5F1 KOQfBBXlRAS2tDH5wF4k bGlnbjogbGVmdDsgdmVy bSklPOolECxhC372QWLm yLmwCfT9ZXweVWPh LM36GB53tSArb0B3lLE9 N9VsEUMklmluayhwtET1 LIBiWIQvyA18kNRaPQvh Sk6fs9J2g555CMRd EHVliR84Uo4meLhxFMSt oAQNtU2lsmauj5qhvtih BxVhUFJeIGb5TQl0YTRu eRroFbTgRVL4QwH8 WCW7eTYfnP3enGfbesgz dI5mYal+TUFMRTwvdGQ+ PVQvOYB3nKllYVowYUDz uU2iPNVoQ9f8DtYz MkY7KDdpT5BrJHVoqjpg Rb14kL1qEcOcEnU3QEor F6XigqE5OSPjlDXcRLxb ZJV8H44mg3J2PWHg MIZgWIA6qOO9mK5qsUwi bjogbGVmdDsgdmVydGlj BVnoSAyoA391NMJxxSpc Qf2JOG67AH67G3Pj PjwvdGFibGU+PHRhYmxl IHdpZHRoPScxMDAlJyBz mHpdGT6hJt5wJUTyYXFy vHzqaKFlKxNdg4ou ZZVuCQnlEG1yeButV8Su iVE1TKTks3e5Lt26W00j Y8SucSX+DYMtuOO2eBV4 gY4tXvIvGvP2BWdm M855AbLfpVEiLewsk6pg v1hkfNc3LeZgVWFqrlTs eHpaMAM8p5PiTq81U26m IHdpZHRoPSIyMCUi LLXyuAuglg4tuK3cHo4+ JSStcQC7rGU7zA6hCeSy NaB9RGxeW259NsNcoPAv YpdtR38lY6DpiOQ+ WTFwWnk4PNVwaUsiDA1f vYOjRNmyWh6mTZY4XvBe NqNdDFwiL3XlIDBumfxi mcfadLO4EBXmVTMf zU25Sl7dbEdfJq0fXXLm LCR9MEQnrSWeC4LriN8k ZyZwIEIeZTDvK5DzbWCy KRipK322TXarOuD7 NSApzjWiR5FdRPKvzCjw LlZ2j5E4Or5JiIgopPLv ZV6cXiNyCYn5H9FhNki1 YITvnKylJT7sxMGq UEctYc4cgHyvbEqvJJ5u HUQjefwct736QoBag5lr ALEpqQOiMLkiHKF3R24q d8G1XIFpEIYqDZJ8 zFA3iU3qqGfccvbeuKDc dDsgdmVydGljYWwtYWxp B068QPCivYwmCaUFWem8 J6FmYck7GPRpcFam OQ7mnOSlTKmtNn1jaJhs mNvqTQ0zKFMxjxybn227 JnQnf2ufREAagGBdPTrj SDB2D77fr0Y0NYFx BURdLCP7tGE9vZ9uxLwa bjogbGVmdDsgdmVydGlj FNdfKFwxJ795KBTlxFaf Fa3SEon5L3HdGnp0 NODukHydQG1gfLStKGyq Qo1bdZuglPrzOG8fBPPr xcegh710ImLwt9ujLHNe zWMnRHokXBI2F72v l9D6MTLrEXAnZIG4mUV7 wV2grPryjiaerEBujGep gcJnsIciKQcnXFtnZ725 IHRvcDsnPlBheWVy OjwvdGQ+NA21zi80O6Se AaqiOmw2FYQjIGE5hGM3 tL1wUHJfHTnnp5C2wDP1 V0YsspGtad7vg3bt YXB (more content not included)... [facility] C Throaton 09-01-2023 C Throat Heavy growth of Yeast No SHAJI performed on this organism [facility] Comment on above: Performed By: #### [id number] #### [facility] (DEFAULT) [address] [id number] Provider Orderson 08-29-2023 Provider Orders [id number] 30#[id number] [facility] 37on 07-04-2023 37 Will need blood drawn in about 1-2 months- must be fasting- do not eat after midnight before having blood drawn Continue all medication Normal [facility] Office Visiton 07-04-2023 Follow-up visit [id number] Gina Li 1975 M Date Provider Department Center 07/04/2023 CECILIA HENDRICKSON RUSTY Sen Family History Problem Relation Age of Onset Atrial fibrillation Mother Family Status - Relation Status Age at Mother Level of Service:85779 [place] OFFICE/OUTPATIENT ESTABLISHED MOD MDM 30 MIN Normal [facility] HPon 05-30-2023 HP Attestation signed by Alexander [...] to, bleedin (more content not included)... Normal [facility] NURSNOTEon 05-30-2023 NURSNOTE RN educated pt on d/c instructions. RN encouraged pt to voice any questions or concerns. Pt verbalizes no questions or concerns at this time. Pt was wheeled off of unit with all of belongings. Normal [facility] Telephoneon 05-15-2023 Telephone [id number] Gina Li 1975 M Date Provider Department Center 05/15/2023 MEHREEN HACKETT [facility] Family History Problem Relation Age of Onset Atrial fibrillation Mother Family Status - Relation Status Age at Mother Normal [facility] Orders Onlyon 05-07-2023 Orders Only [id number] Gina Li 1975 Date Provider Department Center 05/07/2023 MEHREEN HACKETT [facility] Family History Problem Relation Age of Onset Atrial fibrillation Mother Family Status - Relation Status Age at Mother Normal [facility] Office Visiton 04-17-2023 Follow-up visit [id number] Gina Li 1975 Provider Department Center 04/17/2023 ALEXANDER CONTE CARD [facility] Family History Problem Relation Age of Onset Atrial fibrillation Mother Family Status - Relation Status Age at Mother Level of Service:22397 [place] OFFICE/OUTPATIENT NEW MODERATE MDM 45-59 MINUTES Normal [facility] Orders Onlyon 04-17-2023 Orders Only [id number] Gina Li 1975 Provider Department Center 04/17/2023 CHAVO WHITAKER CARD [facility] Family History Problem Relation Age of Onset Atrial fibrillation Mother Family Status - Relation Status Age at Mother Normal [facility] CBC AUTO DIFFon 08-14-2022 BASO # 0.1 103/ul Normal 0.0-0.1 [facility] Comment on above: Performed By: #### C BC #### Laboratory [address] [place] [address] Dr. Miriam Ernandez Basophils/100 WBC (Bld) 0.5 % Normal 0.2-2.0 [facility] Comment on above: Performed By: #### C BC #### Laboratory [address] [place] [address] Dr. Miriam Ernandez EO # 0.2 103/ul Normal 0.0-0.7 The Comment on above: Performed By: #### C BC #### Laboratory [address] [place] [address] Dr. Miriam Ernandez Eosinophils/100 WBC (Bld) 1.7 % Normal 0.9-7.0 [facility] Comment on above: Performed By: #### C BC #### Laboratory [address] [place] [address] Dr. Miriam Ernandez Erythrocyte distribution width (RBC) [Ratio] 12.2 % Normal 11.0-15.0 [facility] Comment on above: Performed By: #### C BC #### Laboratory [address] [place] [address] Dr. Miriam Ernandez Hematocrit (Bld) [Volume fraction] 45.6 % Normal 42.0-54.0 [facility] Comment on above: Performed By: #### C BC #### Laboratory [address] [place] [address] Dr. Miriam Ernandez Hemoglobin (Bld) [Mass/Vol] 14.6 g/dL Normal 14.0-18.0 [facility] Comment on above: Performed By: #### C BC #### Laboratory [address] [place] [address] Dr. Miriam Ernandez IG # 0.03 10e3/ul Normal 0.00-0.03 [facility] Comment on above: Performed By: #### C BC #### Laboratory [address] [place] [address] Dr. Miriam Ernandez IG % 0.3 % Normal 0.0-0.5 [facility] Comment on above: Performed By: #### C BC #### Laboratory [address] [place] [address] Dr. Miriam Ernandez LYMPH # 2.5 103/ul Normal 1.2-3.8 [facility] Comment on above: Performed By: #### C BC #### Laboratory [address] [place] [address] Dr. Miriam Ernandez Lymphocytes/100 WBC (Bld) 23.5 % Normal 20.5-60.0 [facility] Comment on above: Performed By: #### C BC #### Laboratory [address] [place] [address] Dr. Miriam Ernandez MANUAL DIFF REQ NO Normal [facility] Comment on above: Performed By: #### C BC #### Laboratory [address] [place] [address] Dr. Miriam Ernandez MCH (RBC) [Entitic mass] 31.6 pg Normal 25.9-34.0 The Comment on above: Performed By: #### C BC #### Laboratory [address] [address] [address] Miriam Ernandez MCHC (RBC) [Mass/Vol] 32.0 g/dL Normal 29.9-35.2 The Comment on above: Performed By: #### C BC #### Laboratory [address] [address] [address] Miriam Ernandez MCV (RBC) [Entitic vol] 98.7 fL Critically high 80.0-94.0 [facility] Comment on above: Performed By: #### C BC #### Laboratory [address] [address] [address] Miriam Ernandez MONO # 1.0 103/ul Critically high 0.3-0.8 [facility] Comment on above: Performed By: #### C BC #### Laboratory [address] [address] [address] Miriam Ernandez Monocytes/100 WBC (Bld) 9.0 % Normal 1.7-12.0 [facility] Comment on above: Performed By: #### C BC #### Laboratory [address] [place] [address] Dr. Miriam Ernandez NEUT # 7.0 103/ul Critically high 1.4-6.5 [facility] Comment on above: Performed By: #### C BC #### Laboratory [address] [address] [address] Miriam Ernandez Neutrophils/100 WBC (Bld) 65.0 % Normal 43.0-75.0 The Comment on above: Performed By: #### C BC #### Laboratory [address] [address] [address] Miriam Ernandez Platelet mean volume (Bld) [Entitic vol] 9.8 fL Normal 9.5-13.5 The Comment on above: Performed By: #### C BC #### Laboratory [address] [address] [address] Miriam Ernandez PLT 255 103/ul Normal 150-450 The Comment on above: Performed By: #### C BC #### Laboratory [address] [address] [address] Miriam Ernandez RBC 4.62 106/ul Critically low 4.70-6.10 [facility] Comment on above: Performed By: #### C BC #### Laboratory [address] [address] [address] Miriam Ernandez WBC 10.7 103/ul Normal 4.0-11.0 [facility] Comment on above: Performed By: #### C BC #### Laboratory [address] [address] [address] Miriam Ernandez LIPID PROFILEon 08-14-2022 CHOL-HDL RATIO NORM SEE BELOW Normal [facility] Comment on above: Result Comment: 3.3 - 4.4 LOW RISK 4.4 - 7.1 AVERAGE RISK 7.1 - 11.0 MODERATE RISK >11.0 HIGH RISK Performed By: #### L IPID, CMP #### Laboratory [address] [address] [address] Miriam Ernandez Cholesterol [Mass/Vol] 108 mg/dL Normal <=200 [facility] Comment on above: Performed By: #### L IPID, CMP #### Laboratory [address] [address] [address] Miriam Ernandez Cholesterol in HDL [Mass/Vol] 31 mg/dL Critically low 40-60 [facility] Comment on above: Performed By: #### L IPID, CMP #### Laboratory [address] [address] [address] Miriam Ernandez Cholesterol in LDL [Mass/Vol] 50.0 mg/dL Normal [facility] Comment on above: Performed By: #### L IPID, CMP #### Laboratory [address] [address] [address] Miriam Ernandez Cholesterol.total/ Cholesterol in HDL [Mass ratio] 3.5 {ratio} Normal [facility] Comment on above: Performed By: #### L IPID, CMP #### Laboratory [address] [address] [address] Miriam Ernandez HDL NORMAL > or = 60 mg/dl - LOW CARDIOVASCULAR RISK <40 mg/dl - HIGH CARDIOVASCULAR RISK Normal [facility] Comment on above: Performed By: #### L IPID, CMP #### Laboratory [address] [address] [address] Miriam Ernandez LDL CALC NORMAL SEE BELOW Normal [facility] Comment on above: Result Comment: <100 mg/dl OPTIMAL 100 - 129 mg/dl NEAR OR ABOVE OPTIMAL 130 - 159 mg/dl BORDERLINE HIGH 160 - 189 mg/dl HIGH >190 mg/dl VERY HIGH Performed By: #### L IPID, CMP #### Laboratory [address] [address] [address] Miriam Ernandez Triglyceride [Mass/Vol] 135 mg/dL Normal <=150 [facility] Comment on above: Performed By: #### L IPID, CMP #### Laboratory [address] [place] [address] Dr. Miriam Ernandez VLDL CALC 27.0 mg/dL Normal [facility] Comment on above: Performed By: #### L IPID, CMP #### Laboratory [address] [address] [address] Miriam Ernandez PROF 14(COMP METB)on 023 Albumin [Mass/Vol] 3.9 g/dL Normal 3.4-5.0 [facility] Comment on above: Performed By: #### L IPID, CMP #### Laboratory [address] [place] [address] Dr. Miriam Ernandez Albumin/Globulin [Mass ratio] 1.2 {ratio} Normal [facility] Comment on above: Performed By: #### L IPID, CMP #### Laboratory [address] [address] [address] Miriam Ernandez ALP [Catalytic activity/Vol] 110 U/L Normal 46-116 [facility] Comment on above: Performed By: #### L IPID, CMP #### Laboratory [address] [address] [address] Miriam Ernandez ALT [Catalytic activity/Vol] 46 U/L Normal 16-63 [facility] Comment on above: Performed By: #### L IPID, CMP #### Laboratory [address] [address] [address] Miriam Ernandez Anion gap [Moles/Vol] 10.9 mmol/L Normal [facility] Comment on above: Performed By: #### L IPID, CMP #### Laboratory [address] [place] [address] Dr. Miriam Ernandez AST [Catalytic activity/Vol] 18 U/L Normal 15-37 [facility] Comment on above: Performed By: #### L IPID, CMP #### Laboratory [address] [place] [address] Dr. Miriam Ernandez Bilirubin [Mass/Vol] 0.2 mg/dL Normal 0.2-1.0 [facility] Comment on above: Performed By: #### L IPID, CMP #### Laboratory [address] [place] [address] Dr. Miriam Ernandez Calcium [Mass/Vol] 9.4 mg/dL Normal 8.5-10.1 [facility] Comment on above: Performed By: #### L IPID, CMP #### Laboratory [address] [place] [address] Dr. Miriam Ernandez Chloride [Moles/Vol] 105 mmol/L Normal 98-107 [facility] Comment on above: Performed By: #### L IPID, CMP #### Laboratory [address] [place] [address] Dr. Miriam Ernandez CO2 [Moles/Vol] 30.2 mmol/L Normal 21.0-32.0 [facility] Comment on above: Performed By: #### L IPID, CMP #### Laboratory [address] [place] [address] Dr. Miriam Ernandez Creatinine [Mass/Vol] 0.80 mg/dL Normal 0.70-1.30 [facility] Comment on above: Performed By: #### L IPID, CMP #### Laboratory [address] [place] [address] Dr. Miriam Ernandez EGFR-AF SRI LANKAN >60 Normal >=60 [facility] Comment on above: Performed By: #### L IPID, CMP #### Laboratory [address] [place] [address] Dr. Miriam Ernandez EGFR-NON AF SRI LANKAN >60 Normal >=60 [facility] Comment on above: Performed By: #### L IPID, CMP #### Laboratory [address] [place] [address] Dr. Miriam Ernandez Globulin (S) [Mass/Vol] 3.3 g/dL Normal [facility] Comment on above: Performed By: #### L IPID, CMP #### Laboratory [address] [place] [address] Dr. Miriam Ernandez Glucose [Mass/Vol] 64 mg/dL Critically low 74-106 [facility] Comment on above: Performed By: #### L IPID, CMP #### Laboratory [address] [place] [address] Dr. Miriam Ernandez Potassium [Moles/Vol] 4.1 mmol/L Normal 3.5-5.1 [facility] Comment on above: Performed By: #### L IPID, CMP #### Laboratory [address] [place] [address] Dr. Miriam Ernandez Protein [Mass/Vol] 7.2 g/dL Normal 6.4-8.2 [facility] Comment on above: Performed By: #### L IPID, CMP #### Laboratory [address] [place] [address] Dr. Miriam Ernandez Sodium [Moles/Vol] 142 mmol/L Normal 136-145 [facility] Comment on above: Performed By: #### L IPID, CMP #### Laboratory [address] [place] [address] Dr. Miriam Ernandez Urea nitrogen [Mass/Vol] 10.0 mg/dL Normal 7.0-18.0 [facility] Comment on above: Performed By: #### L IPID, CMP #### Laboratory [address] [place] [address] Dr. Miriam Ernandez Urea nitrogen/Creatinin e [Mass ratio] 12.5 mg/mg Normal [facility] Comment on above: Performed By: #### L IPID, CMP #### Laboratory [address] [place] [address] Dr. Miriam Ernandez HEMOGLOBINon 02-20-2022 Hemoglobin (Bld) [Mass/Vol] 14.5 g/dL Normal 14.0-18.0 [facility] Comment on above: Performed By: #### H GB #### Laboratory [address] [address] [address] Miriam Ernandez XR CHEST 2 Von 02-20-2022 XR CHEST 2 V EXAMINATION: XR CHEST 2 V HISTORY: Uncomplicated mild persistent asthma [...] by: BRYN AMADOR Date: 2022-02-20 15:29 Normal [facility] Encounters Encounter Date Encounter Type Care Provider Facility Start: 08-29-2023 End: 08-30-2023 ambulatory Favian Lugo MD [facility] Start: 07-04-2023 End: 07-04-2023 ambulatory CECILIA RAMOS [facility] Start: 05-30-2023 End: 05-30-2023 ambulatory [facility] Start: 04-17-2023 End: 04-17-2023 ambulatory [facility] Start: 11-08-2022 End: 11-09-2022 ambulatory DEBORAH SWIFT . Facility:[facility] Start: 08-14-2022 End: 08-15-2022 ambulatory VANCE RENO Facility:[facility] Start: 02-27-2022 End: 02-28-2022 ambulatory DEBORAH SWIFT . Facility:[facility] Start: 02-20-2022 End: 02-21-2022 ambulatory DEBORAH SWIFT . Facility:[facility] Start: 02-20-2022 End: 02-21-2022 ambulatory DEBORAH SWIFT . Facility:[facility] Payers Date Payer Category Payer Unknown [id number] 2.16.84 [id number] 1974 Unknown [id number] 2.16.84 [id number] 1974 Unknown [id number] 2.16.84 [id number] 1974 Unknown [id number] 2.16.84 [id number] 1974 Unknown [id number] 2.16.84 [id number] 1974 Unknown [id number] 2.16.8 [id number] 1959 Unknown [id number] Progress note 07-04-2023 Note Date & Type Note Facility 07-04-2023 Note Tobacco use is impro ving where he is down to 1 pack in 3 days with wellbutrin use. 10 min discussion regarding importance of smoking cessation with noted mild to mod CAD and he voiced understanding [facility] Progress note 07-04-2023 Note Date & Type Note Facility 07-04-2023 Note Continue lipitor 40 mg daily, recommended pt to take in the evening. Repeat LFT and lipid level in about 2 months after increased dose of lipitor to 40 mg after cardiac cath [facility] Progress note 07-04-2023 Note Date & Type Note Facility 07-04-2023 Note Patient here for fol low up cath on 05/30/[address] Richard. Lipitor was increased to 40mg nightly. Tolerating it well so far. Still has chest pain but thinks it's musculoskeletal. Review of Systems Cardiovascular: Positive for chest pain. Musculoskeletal: Positive for back pain. All other systems reviewed and are negative. [facility] Progress note 12-27-2023 Note Date & Type Note Facility 07-04-2023 Note [facility] ESS NOTE HPI: Gina Li is a 47 y.o. male here for f/U s/p recent cardiac cath for abnormal stress test, angina, and [place] Patient here for follow up cath on 05/30/[address] Richard. Lipitor was increased to 40mg nightly. Tolerating it well so far. Still has chest pain but thinks it's musculoskeletal. 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 Was evaluated in the clinic last month for recurrent CP. Reports symptoms of exertional chest pain over the past few months. He reports some associated shortness of breath. Overall states he is feeling well, denied chest pain, shortness of breath, orthopnea. 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 States that he has cut down smoking to 1 pack lasting 3 days. Review of Systems Cardiovascular: Positive for chest pain. Musculoskeletal: Positive for back pain. All other systems reviewed and are negative. Visit Vitals BP 114/88 (BP Location: Left arm, Patient Position: Sitting) Pulse 75 Ht 1.753 m (5' 9 ) Wt 104 kg (230 lb) SpO2 97% BMI 33.97 kg/m??? Smoking Status Former BSA 2.25 m??? No Known Allergies Medications: Current Outpatient Medications on File Prior to Visit Medication Sig Dispense Refill Advair Diskus 250-50 mcg/dose diskus inhaler Inhale 1 puff in the morning and at bedtime. albuterol 90 mcg/actuation inhaler Inhale 2 puffs every 4 (four) hours if needed for wheezing or shortness of breath. aspirin 81 mg EC tablet Take 81 mg by mouth in the morning. buPROPion (Zyban) 150 mg 12 hr tablet Take 150 mg by mouth in the morning and at bedtime. fexofenadine (Swati) 180 mg tablet Take 180 mg by mouth in the morning. losartan (Cozaar) 25 mg tablet Take 25 mg by mouth in the morning. montelukast (Singulair) 10 mg tablet Take 10 mg by mouth in the morning. omeprazole (PriLOSEC) [address] capsule Take 40 mg by mouth in the morning. predniSONE (Deltasone) 20 mg tablet Take 60 mg by mouth if needed. tiotropium (Spiriva) [address] 1 capsule into inhaler and inhale in the morning. [DISCONTINUED] atorvastatin (Lipitor) 20 mg tablet Take 20 mg by mouth at bedtime. No current facility-administered medications on file prior to visit. Physical Exam: Constitutional: Appearance: Normal appearance. Without apparent distress HENT: Head: Normocephalic and atraumatic. Nose: Nose normal. Mouth/Throat: Mouth: Mucous membranes are moist. Eyes: Extraocular Movements: Extraocular movements intact. Conjunctiva/sclera: Conjunctivae normal. Neck: Vascular: No JVD. Cardiovascular: Rate and Rhythm: Normal rate and regular rhythm. Pulses: b/l radial pulses 3+ palpable. Rt radial site C/D/I- well healed, no hematoma, bruit or ecchymosis noted Dorsalis pedis pulses are 3 on the right side and 3on the left side. Posterior tibial pulses are 3 on the right side and 3 on the left side. Heart sounds: Normal heart sounds, S1 normal and S2 normal. Pulmonary: Effort: Pulmonary effort is normal. Breath sounds: Normal breath sounds. Abdominal: General: Bowel sounds are normal. Palpations: Abdomen is soft. Musculoskeletal: General: Normal range of motion. Cervical back: Normal range of motion. Right lower leg: No edema. Left lower leg: No edema. Skin: General: Skin is warm and dry. Capillary Refill: Capillary refill takes less than 2 seconds. Neurological: General: No focal deficit present. Mental Status: he is alert and oriented to person, place, and time. Psychiatric: Mood and Affect: Mood normal. Behavior: Behavior normal. Thought Content: Thought content normal. Judgment: Judgment normal. Labs: 03/03/23 CBC normal Renal and liver function normal Chol 134, Trig 50, HDL 33, LDL 91 A1c- 5.5 Last lab values have been reviewed CV Testin05/30/23 Cardiac cath Final Impressions: -mild to moderate non obstructive CAD -normal LVEDP Recommendations: -Aspirin 81 mg daily and high intensity statin therapy -Optimization of medical management -Aggressive risk factor modification -Follow up with Cardiology as scheduled CORONARY FINDINGS: LMCA - This vessel arises from the left coronary cusp and trifurcates into the left anterior descending, ramus, and left circumflex coronary arteries. It is angiographically patent and without significant stenosis. LAD -vessel is ectatic in the proximal portion. It quickly tapers to a smaller sized vessel in the midportion. Mid to distal LAD have mild to moderate diffuse disease. LCX -vessel is ectatic in the proximal portion and tapers to a mid size vessel in the midportion. There is mild disease throughout. The circumflex is a codominant vessel Ramus -this is the mid side vess (more content not included)... [facility] Progress note 07-04-2023 Note Date & Type Note Facility 07-04-2023 Note No significant coron deven disease that would explain his symptoms, f/U with PCP for further evaluation of other etiologies for symptoms including- pulmonary, GI and/or muscular-skeletal. Most likely r/t muscular/skeletal etiology but he also has h/o barretts esophagus [facility] Progress note 07-03-2023 Note Date & Type Note Facility 07-03-2023 Note Coronary artery dise ase is stable Continue GDMT- ASA, liptor 40 mg daily, losartan continue risk factor modifications- heart healthy diet, regular exercise as tolerated and continue all medications. Continue attempting at smoking cessation [facility] Clinical Note 05-30-2023 Note Date & Type Note Facility 05-30-2023 Note Patient: Gina Li Procedure Information Date/Time: 05/30/23 0830 Procedure: Coronary angiography (Left) Location: [facility] (Cath) Providers: Alexander Richard MD [...] with fellow and attending. Additional Equipment Requests [facility] Progress note 04-17-2023 Note Date & Type [...] -Patient was e (more content not included)... [facility] Progress note 04-17-2023 Note Date & Type [...] All other systems reviewed and are negative. [facility] Clinical Note 11-08-2022 Note Date & Type [...] authenticated by: DAVID CRUZ Date: 2022-11-08 09:09 [facility] Summary Purpose Family History No Family History Records FoundNo Family History Records FoundNo Family History Records Found Advance Directives No Advanced Directives Records FoundNo Advanced Directives Records FoundNo Advanced Directives Records Found Additional Source Comments (unrecognized sect ion and content) No Status Records FoundNo Status Records FoundNo Status Records Found INFORMATION SOURCE (unrecogn ized section and content) DATE CREATED AUTHOR 11/15/2022 [facility] DATE CREATED AUTHOR AUTHOR'S ORGANIZ ATION 07/05/[address] [facility] DATE CREATED AUTHOR AUTHOR'S ORGANIZ ATION 09/06/2023 [facility] FOR RECORDS PERTAINING TO PATIENTS WHO ARE [...] BE BASED ON THE PRIMARY CLINICAL RECORDS. [facility] provides no warranty or guarantee of the accuracy or completeness of information in this document.
[2023-09-13 15:28] LABS: Alanine Aminotransferase 74 U/L (16-63); Albumin Globulin Ratio 0.9; Albumin Level 3.5 g/dL (3.4-5.0); Alkaline Phosphatase 110 U/L (46-116); Aspartate Amino Transferase 32 U/L (15-37); Bilirubin Direct 0.1 mg/dL (0.0-0.2); Bilirubin Total 0.3 mg/dL (0.2-1.0); Chol HDL Ratio 3.5; Cholesterol 119 mg/dL (<=200); Globulin 3.7 g/dL; HDL Cholesterol 34 mg/dL (40-60); Total Protein 7.2 g/dL (6.4-8.2); Triglycerides 72 mg/dL (<=150); VLDL CHOLESTEROL 14.4 mg/dL
== END 2023-09-13 12:28 | disposition home or self-care (01) ==
LOC: LAB 12:28
PROVIDERS: PCP Nurse Practitioner Primary Care; Visit Provider Nurse Practitioner
DX: I25.10 Atherosclerotic heart disease of native coronary artery without angina pectoris (principal); E78.2 Mixed hyperlipidemia
CPT/HCPCS: 36415; 80061; 80076

== ENCOUNTER 2024-01-08 08:07 | Outpatient (OUT) | payer BC, SELFPAY ==
[2024-01-08 10:28] LABS: Hematocrit 41.6 % (42.0-54.0); Hemoglobin 13.9 g/dL (14.0-18.0); Mean Corpuscular HGB Conc 33.4 g/dL (29.9-35.2); Mean Corpuscular Hemoglobin 31.6 pg (25.9-34.0); Mean Corpuscular Volume 94.5 fL (80.0-94.0); Mean Platelet Volume 9.8 fL (9.5-13.5); Platelet Count 267 10^3/uL (150-450); Red Cell Distribution Width 12.1 % (11.0-15.0); White Blood Count 8.9 10^3/uL (4.0-11.0)
[2024-01-08 10:43] LABS: Alanine Aminotransferase 38 U/L (16-63); Albumin Globulin Ratio 1.1; Albumin Level 3.6 g/dL (3.4-5.0); Alkaline Phosphatase 129 U/L (46-116); Anion Gap 12.3; Aspartate Amino Transferase 17 U/L (15-37); BUN Creatinine Ratio 8.2; Bilirubin Total 0.5 mg/dL (0.2-1.0); Calcium 8.7 mg/dL (8.5-10.1); Carbon Dioxide 26.7 mmol/L (21.0-32.0); Chloride 106 mmol/L (98-107); Chol HDL Ratio 3.5; Cholesterol 112 mg/dL (<=200); Estimated GFR (African America >60 (>=60); Estimated GFR (Non-African Ame >60 (>=60); Globulin 3.4 g/dL; Glucose 101 mg/dL (74-106); HDL Cholesterol 32 mg/dL (40-60); Sodium 141 mmol/L (136-145); Triglycerides 69 mg/dL (<=150); VLDL CHOLESTEROL 13.8 mg/dL
--- OUTSIDE RECORDS SUMMARY | 2024-01-11 08:16 | XMS_ITS | CCD ---
Author Organization [facility] Inform ion Partnership [facility] Care Team Providers Care Manager Integrity Name Role Phone SAMSA ., DEBORAH Attending Unavailable DR BRYN AMADOR Consulting Unavailable SAMSA ., DEBORAH Admitting Unavailable [facility] Primary Care Unavailable SAMSA ., DEBORAH Consulting Unavailable SAMSA ., DEBORAH Attending Unavailable SAMSA ., DEBORAH Consulting Unavailable SAMSA ., DEBORAH Admitting Unavailable [facility] Primary Care Unavailable SAMSA ., DEBORAH Attending Unavailable SAMSA ., DEBORAH Consulting Unavailable SAMSA ., DEBORAH Admitting Unavailable [facility] Primary Care Unavailable SHAMMO, VANCE Attending Unavailable SHAMMO, VANCE Consulting Unavailable SHAMMO, VANCE Admitting Unavailable [facility] Primary Care Unavailable SAMSA ., DEBROAH Admitting Unavailable [facility] Primary Care Unavailable SAMSA ., DEBORAH Attending Unavailable SAMSA ., DEBORAH Consulting Unavailable DAVID CRUZ Consulting Unavailable Parish WILLS, Favian Garrett Attending Unavailamanda Lugo MD, Favian Garrett Admitting Unavailamanda Lugo MD, Favian Garrett Primary Care Unavailabl e RACHEL, CECILIA Attending Unavailable ALGHOTHANI, MOHAMAD Attending Unavailable ALGHOTHANI, MOHAMAD Admitting Unavailable ALGHOTHANI, MOHAMAD Attending Unavailable ALGHOTHANI, MOHAMAD Referring Unavailable RACHEL, CECILIA Attending Unavailable Problems Active Problems Problem Classification Problem Date Documented Date Episodic/Chronic Asthma (8 sources) Mild persistent asthma with (acute) exacerbation; Translations: [Mild persistent asthma, uncomplicated] Onset: 02-20-2022 Chronic Coronary atherosclerosis and other heart disease (4 sources) Atherosclerotic heart disease of [place] coronary artery without angina pectoris; Translations: [Other forms of angina pectoris] Onset: 04-17-2023 Chronic Disorders of lipid metabolism (3 sources) Mixed hyperlipidemia; Translations: [MIXED HYPERLIPIDEMIA] Onset: 08-16-2022 Chronic Essential hypertension (4 sources) Essential (primary) hypertension; Translations: [ESSENTIAL PRIMARY HYPERTENSION] Onset: 08-14-2022 Chronic Nonspecific chest pain (4 sources) Precordial pain; Translations: [Chest pain, unspecified] Onset: 04-17-2023 Episodic Residual codes; unclassified (1 source) Idiopathic hypersomnia with long sleep time; Translations: [IDIO HYPERSOMNIA W/LONG SLEEP TIME] Onset: 03-02-2022 Chronic Residual codes; unclassified (5 sources) Obstructive sleep apnea (adult) (pediatric); Translations: [OBSTRUCTIVE SLEEP APNEA] Onset: 02-21-2022 Chronic Substance-related disorders (2 sources) Nicotine dependence, cigarettes, uncomplicated; Translations: [Nicotine dependence, cigarettes, uncomplicated] Onset: 07-04-2023 Chronic Past or Other Problems Problem Classification Problem Date Documented Date Episodic/Chronic Other screening for suspected conditions (not mental disorders or infectious disease) (2 sources) Abnormal result of other cardiovascular function study; Translations: [Abnormal result of other cardiovascular function study] Onset: 04-17-2023 Episodic Results Test Name Value Interpretation Reference Range Facil ity Office Visiton 09-21-2023 Follow-up visit [id number] Gina Li 1975 M Date Provider Department Center 09/21/2023 CECILIA HENDRICKSON [facility] Family History Problem Relation Age of Onset Atrial fibrillation Mother Family Status - Relation Status Age at Mother Level of Service:[address]74 [place] OFFICE/OUTPATIENT ESTABLISHED MOD MDM 30 MIN Reason for Visit and Comments: Follow-up [626918] - Chest pain resolved No further cardio symptoms Normal [facility] 36on 09-17-2023 36 Regarding lab results from 09/13/2023: JOSE Lester MA Please let him know liver function is perfect, LDL is still too high and I am gonna increase lipitor to 80 mg daily. Repeat LFT and lipid in 2-3 months. Spoke with patient and he will double his current dose of atorvastatin (40mg tablets). I informed him 80mg tablets were sent into his pharmacy. He has apt this Sunday with Carine and I will give him repeat lab orders then. Normal [facility] Orders Onlyon 09-14-2023 Orders Only [id number] JenGina Hayes 1975 M Date Provider Department Center 09/14/2023 Amador-CECILIA RAMOS [facility]. Family History Problem Relation Age of Onset Atrial fibrillation Mother Family Status - Relation Status Age at Mother Normal [facility] Coding Summaryon 09-04-2023 Coding Summary HTMLBase 64 YnlizmpaBGe9tIr+PGhl YWQ+WK2GOEGuH49baDNy vL5dA5WLFHkHEptvOQYP SHlLMrVikvWtAW5nhGOa ZXJu IC8+MB7eAQIlErajuYLr l7F6aXM0Q65ebm2bVQsg rOY8RXIiApIkkanrl9uj dMj4ZTayNxroQxYj FFXpcD99VTY0dB28Tk80 fCFydADtv3cikEp9IlZh MRZkXKZ6vFwvTYiej7Nu KUFaT51liICaf1B3 IGNvbGxhcHNlOyBlbXB0 fR9lUGshilenz0qxngwi Fam7lh67hRVrj4R5hOJ1 J2JtjcO9YTJcsGBm FjafcIDWdE9zgailm7mp jdtkTxDiXUJfGRx3JYd5 GDGomMvtGsJqTQ17EPQ8 JNLowtBsH5TaMUIw gVrlXgE9m5E4Kp2FB1TH ObvvI6QSNVWXMBmcqAJ+ GX74iy62U8VwMgelGpp2 NZPgSJN7nOJ2vG0n FNHnPUjsg5R6gOA1L8Jx glGcct9if8mpXABeUEfu U37fmKCqv1T7JFDnrVJ0 TNZsiJgiZxMxkZ35 Oyc+QAAzzWmfz9LhUbah k7jwx7dygJq2GwycHPSm qyMsvPttLID4f5FgMm4m YSMyhXF9nZH1qD7s JeBkWaS8FJvvL387XjXe gYRjBekdV74bQ6MqhSV+ OMGbIwu3MIQmfYuwQT8a V9YkFLUmfpcpfSNg nWnlMA9gNDNhnshaOJSx nW4rDYXkS6w8ZtYeEwF6 IWnwD9EaGMAiuthiAw20 zN2fEzXlSnY5AUac Q7XjirZ1XPUbcDLlFWvw CMZ9T46yr4T9ZWFsTEZs HCC4jNP5aM0pgIrczqbw bGVmdDsgdmVydGlj PFacXSxwO420BQAiaTfg PkNvZGluZyBEYXRlOiAg MDIvMjcvMjAyNDwvdGQ+ PINzQYZ0sYwaPYEw lEPhNIvjDj2knWaopYla WU4yMHFolofxDRDdwB6c DUDncDTowFtfPF9oNOUn ivzhw471DfZmLYV7 XTYpfIJnW3SygA7hKyHq ZOWzGYKzW4KnqPNfNPlt L040CQwwJzS0KWYdhmWe F6XmLBXflYjxKkV8 z4E7Ba9Vi0BekubpV4Wc mLZqTpRfCeieOWw8J9Um PjwvdHI+MJ58CVLwUS82 RJv6YBQ9tRsrVFog FEYfU6EinD6yThUbXFDl ZGRkOyc+PHRhYmxlIHdp ZHRoPScxMDAlJyBzdHls XT3aWa3fFEZwICBw iItizCOwIqDxm0jzFGLd OGkfLN4adDwiF0IocHM8 OTWdh2l9Lg64Q95tG9Qp dXA+GPQjjMK1cFR5 bI0qRnZwFqL8EQaoU056 PgPbaDEySpqtg2wed6qp lBq8XpV7UJSiptHamYie ZRJ4b4DvNy15X51z IHdpZHRoPSIxNSUiIHZh uKeijl1dkI2fWr4+PGNv iFO9oRK4wP5aWwCsMmQ9 KMflP223ZyMynZDd Dmruv3jmm2kvsTx4VdRy THCguwYkzOsgTCL2j6Wl Pg49H9PzaHwgh3AaYye4 af59sIMxq9J6jAV2 K9NdADBtzgxyqOHfqVrh GV6bOHSgedvuDFHheM4l KCUpV7k8LzUnByC1UClp Q9LxxvG0CAUurHEp LYXlyDJXkN5pkmjuz2tu gpfcOlKdPWGjNIy6EJu7 MTBppUhkQzMuYSZ0BjN6 ILH2mXOsxO0ahTqc huojjY7vBzr+EAN8vAXw pTURUH1fIeydjKX+PHRk NLH5lZrrSIriKWKreX5g GHYuW9l8LkEnByW2 CCjnO5SbtmA7SHVqcBRr CKHluWTVnI1edshrt1ir xuqyJrOzKOZbPNf9QAn2 LWFsaWduOiBsZWZ0 NuD6DAL9zNHubA0dqXjg laiyaR3tQrl+QmlydGgg GSX3NOr1M6ByTwy7ZALs eJppBF2ttTYrXNsj Gv0qfTmnxNpwKR2sUGUd davhj596FuJtb5rlBXRj zSOvBZnvIZW5Q37pt8D3 COWdXKNzAPJ8mHT2 tU7tnCiedydzbCJfbHfx wzSbcVqvWEmzMXhvN623 OAWjbEksWhVqYCh0N6Ex Mrf7PPTlsZseCJ3x vJUnAEtxFk7abFbfbZlz EG1uKREzzlosx508UmYl k2rgEVXgzLEvZDtxLII5 H86lc1D9HYKzBZTw TJM0gMM9zM6uzNcdnqvs bGVmdDsgdmVydGljYWwt RVciR586UMPswUypAnVy qCh1P4WaNzu7TMUw iNmjHY1bcUMzCCpgPr5z pBcggGjmST7zMMStisrw k951MxNgt7lbYFYvjXPd OJchELB4W29ih8B0 GXQyNBWqPYE5nXP7yU3q bGlnbjogbGVmdDsgdmVy yZmdPCqaKGjbA597FJXq cDsnPlBhdGllbnQg QLpjMOm7V8PfFygfbMR+ GS92TLExVW78xKRwiOKh s0thsPa0DcBeLSExPMV7 zVncNMqki0UcLSAi Y35tgQOli6K5PQLyzJoc rJQcSfMpzCG8fU3gHYbt ogbtm5rhlrfhMfgcf0sm qk37sI74W59wPVsq ZHRoPSIzMCUiIHZhbGln cs8zfS1jQw2+PGNvbCB3 xBE8hV3sAFPdGcA2OKjk B774FoAraBUrUlew c5gcn3mjwYh3JpW6BPVn zsQvjWykWFB6f0QtSn35 C88pAEumQGTiIBTyZMIa LNXjwJckmw0paF5y Ii8+YBEgtVK4kYY5cZ9l HyCgNdA9NYogH424SgTy mNUiYmfyK33eE9SeePO+ MEGkZpz1UZQxxWpv DE7uyKKwSRdtCe5iKTH2 AqKgMiDqETvoD7MbVDZz kbzsymlnqGO1IMXlDQBv zI14Uo9snYarIYFm nHTJeD2eumbih3erpeeu BhRnGFBuOXb8QTd9LRTz dFziUxJjVUQ5RrX9SFR0 uKIivE6zqCyfcazv dZ2jZ8FhGQOfkdbcCl61 eC9sZbLuMpK7GNgaWch+ T7tNPBeIBNGMJGDQI7OU YVqTEdVAWPzGGT46 NK37yDAju4R8vTG1C5Jy TAAzllitnybfyRZ4VRYy GIEjdD95yUPhZKjiYr3c o8W0q188MCIjZTUz wG91Zf9goHmnGYLffBJC aU2clslsl5zzuileEhBz CVBdHIj7QOm8IUTvkAed GnZfBIQ8LfE7XIP0 eAVmfG8crNyoerhsxC0l Oyc+AGUhNbJvSYt2LOdt dGQ+HARwZRS2fXzbPIck CVPixR4fCUBpV2o5 JzZxHqR4AOqtS1OtCIFu lukqKg21jI8fDcKeAlZ7 AKjpD4NimgY3PONjrTEt IVpoBYK4Z27je3N2 AFUxAWQrXBB9qCB5pA2g bGlnbjogbGVmdDsgdmVy jNpyZVqjMLsdL862MJVv wSgzIrV5WIhoQRAw UY60OG57sXZis2F9aQA4 R6QqAWVrixdgnqjaeUX5 YBIyAFTwrF18nEToGPwt Pe0fk7D3m949KOSr OAZleT52Gl2xzPdgUADb xRGHdH7cvweuz1lvnuyc EfKhTHAjUMe4OLh5EJIh lZzoSsEbVPI0FdS0 KFC5sYBuqW5hwWguurhh uY9qWdn+TUFMRTwvdGQ+ MMCyQGP4tXytHCidZWXd wU4nYLCxR1p9BwRn HkU1OTmiK9QoJDTgurcb Bf93hR3gJqUyWkP9UNoh F3UtrmQ9XHWufKHfQWcu OOC5B97el9O7QGZj HQSdIQI9eFN2kI0foOkq bjogbGVmdDsgdmVydGlj GHxnEDhlV398UZCqbVpv It7EAM46YZ16W9Dh PjwvdGFibGU+PHRhYmxl IHdpZHRoPScxMDAlJyBz lFgaOV3pMn7gBVXlYLGv kHrdeRUdRjLfo8ra VOWbBNzdHU0dvUqaV1Vn gDX3CTVvq8r8Bf27W65o C7XrfXF+GMFoqDU9yZY0 mS0oKfWcOmF1DFjx W398WdPurPLuAeqsx1op w8gzmMc0FlBaJJFyadUn oHiwZVY5c8EhEz82H24z IHdpZHRoPSIyMCUi OVBuyRluci9ejO5lBw3+ TQEjdMR0hKV4vW8lYkJt YyD8JFlqG455FrCjfEKp RlwhG45rL1YkkXU+ BZAeMpw9SXIbkNngQZ6l xAJbBLdiGf9nUEI3PeUv DxEcSNruQ8CxEDEceanl xojboYL9BGVpFBFj zN51Ce9jdLdcXd9vAVTf XAH5SDKzuYIcR7UisG4z IpRyOFZgKYTtF1TfoJCx LSycO494VJmuVhG6 ESSkknZlE9AfFCHvaIxs GaJ1j8H6Hb8MeZzwdNAj YJ8fNtUaXBz4M5PnXin7 BCElmPixHU0gnORx JLpzCd1diSlgnHlcJD4w FYTkwlejp570XdUfh4wb JGZtyDKxWUuwYSI7Z75s t2T7IEUxYWEpJUS6 aFM2uU8khTasvarvxJCq dDsgdmVydGljYWwtYWxp O948ECAzrCkcNwXTLym6 A0RtZkh6KNSooZpr WV9pbNTzDIejLd6sqKzf rTvhKH6rWHKizmfhv578 GnRgj4lbJIPntICkEXsi SDZ5J79bt2L3AGQs PYPvFTT2kCA2rV3ifSdt bjogbGVmdDsgdmVydGlj FAriWKcxH858WOAecCdc Zp1DTyy1W4QaTdd7 CJNevPzcLJ1nyXAxHSri Wc0pvDxkrPvrTD9rLMIc npjhw727EiDdh4anXFMl eEIdJEgdRBR8B57r z1O8UMWxIYBzTGG3tVP9 pA3hgMbzxigjjSXcoDzg stLuaXjpIRpjTKwtP808 IHRvcDsnPlBheWVy OjwvdGQ+TX32ay81N9Mq BhgmGkb9QKUiXUE2mHA4 aJ2mQUReFTmbk1V8wOH3 L1JdhyUvjv0an2vb YXB (more content not included)... Normal [facility] C Throaton 09-01-2023 C Throat Heavy growth of Yeast No SHAJI performed on this organism [facility] Comment on above: Performed By: #### [id number] #### [facility] (DEFAULT) [address] [place] [address] Provider Orderson 08-29-2023 Provider Orders [id number] [facility] 37on 07-04-2023 37 Will need blood drawn in about 1-2 months- must be fasting- do not eat after midnight before having blood drawn Continue all medication Normal [facility] Office Visiton 07-04-2023 Follow-up visit [id number] Gina Li 1975 M Date Provider Department Center 07/04/2023 CECILIA HENDRICKSON [facility] Family History Problem Relation Age of Onset Atrial fibrillation Mother Family Status - Relation Status Age at Mother Level of Service:[address]39 [place] OFFICE/OUTPATIENT ESTABLISHED MOD MDM 30 MIN Normal [facility] HPon 05-30-2023 HP Attestation signed by Adrienne Richard MD at 05/30/2023 8:56 AM H [...] understands these risks and wishes to proceed. Adrienne Richard MD History Of Present Illness Gina [...] limited to, bleedin (more content not included)... [facility] NURSNOTEon 05-30-2023 NURSNOTE RN educated pt on d/c instructions. RN encouraged pt to voice any questions or concerns. Pt verbalizes no questions or concerns at this time. Pt was wheeled off of unit with all of belongings. [facility] Telephoneon 05-15-2023 Telephone [id number] Gina Li 1975 M Date Provider Department Center 05/15/2023 MEHREEN HACKETT [facility] HeartVAS Family History Problem Relation Age of Onset Atrial fibrillation Mother Family Status - Relation Status Age at Mother [facility] Orders Onlyon 05-07-2023 Orders Only [id number] Gina Li 1975 M Date Provider Department Center 05/07/2023 MEHREEN HACKETT [facility] HI HeartVAS Family History Problem Relation Age of Onset Atrial fibrillation Mother Family Status - Relation Status Age at Mother [facility] Office Visiton 04-17-2023 Follow-up visit [id number] Gina Li 1975 M Date Provider Department Center 04/17/2023 3848-ADRIENNE RICHARD [facility] Family History Problem Relation Age of Onset Atrial fibrillation Mother Family Status - Relation Status Age at Mother Level of Service:[address]39 [place] OFFICE/OUTPATIENT NEW MODERATE MDM 45-59 MINUTES Normal [facility] Orders Onlyon 04-17-2023 Orders Only [id number] Luis E Lijanae Abigail 1975 M Date Provider Department Center 04/17/2023 CHAVO WHITAKER [facility]ARD [facility] Family History Problem Relation Age of Onset Atrial fibrillation Mother Family Status - Relation Status Age at Mother Normal [facility] CBC AUTO DIFFon 08-14-2022 BASO # 0.1 103/ul Normal 0.0-0.[address] [facility] Comment on above: Performed By: #### C BC #### [facility] [address] [place] [address] Dr. Miriam Ernandez Basophils/100 WBC (Bld) 0.5 % Normal 0.2-2.[address] [facility] Comment on above: Performed By: #### C BC #### [facility] [address] [place] [address] Dr. Miriam Ernandez EO # 0.2 103/ul Normal 0.0-0.[address] [facility] Comment on above: Performed By: #### C BC #### [facility] [address] [place] [address] Dr. Miriam Ernandez Eosinophils/100 WBC (Bld) 1.7 % Normal 0.9-7.[address] [facility] Comment on above: Performed By: #### C BC #### [facility] [address] [place] [address] Dr. Miriam Ernandez Erythrocyte distribution width (RBC) [Ratio] 12.2 % Normal 11.0-15.[address] [facility] Comment on above: Performed By: #### C BC #### [facility] [address] [place] [address] Dr. Miriam Ernandez Hematocrit (Bld) [Volume fraction] 45.6 % Normal 42.0-54.[address] [facility] Comment on above: Performed By: #### C BC #### [facility] [address] [place] [address] Dr. Miriam Ernandez Hemoglobin (Bld) [Mass/Vol] 14.6 g/dL Normal 14.0-18.[address] [facility] Comment on above: Performed By: #### C BC #### [facility] [address] [place] [address] Dr. Miriam Ernandez IG # 0.03 10e3/ul Normal 0.00-0.[address] [facility] Comment on above: Performed By: #### C BC #### [facility] [address] [place] [address] Dr. Miriam Ernandez IG % 0.3 % Normal 0.0-0.[address] [facility] Comment on above: Performed By: #### C BC #### [facility] [address] [place] [address] Dr. Miriam Ernandez LYMPH # 2.5 103/ul Normal 1.2-3.[address] [facility] Comment on above: Performed By: #### C BC #### [facility] [address] [place] [address] Dr. Miriam Ernandez Lymphocytes/100 WBC (Bld) 23.5 % Normal 20.5-60.[address] [facility] Comment on above: Performed By: #### C BC #### [facility] [address] [place] [address] Dr. Miriam Ernandez MANUAL DIFF REQ NO Normal [facility] Comment on above: Performed By: #### C BC #### [facility] [address] [place] [address] Dr. Miriam Ernandez MCH (RBC) [Entitic mass] 31.6 pg Normal 25.9-34.[address] [facility] Comment on above: Performed By: #### C BC #### [facility] [address] [place] [address] Dr. Miriam Ernandez MCHC (RBC) [Mass/Vol] 32.0 g/dL Normal 29.9-35.[address] [facility] Comment on above: Performed By: #### C BC #### [facility] [address] [place] [address] Dr. Miriam Ernandez MCV (RBC) [Entitic vol] 98.7 fL Critically high 80.0-94.[address] [facility] Comment on above: Performed By: #### C BC #### [facility] [address] [address] [address] Miriam Ernandez MONO # 1.0 103/ul Critically high 0.3-0.8 [facility] Comment on above: Performed By: #### C BC #### [facility] [address] [address] [address] Miriam Ernandez Monocytes/100 WBC (Bld) 9.0 % Normal 1.7-12.[address] [facility] Comment on above: Performed By: #### C BC #### [facility] [address] [address] [address] Miriam Ernandez NEUT # 7.0 103/ul Critically high 1.4-6.5 [facility] Comment on above: Performed By: #### C BC #### [facility] [address] [address] [address] Miriam Ernandez Neutrophils/100 WBC (Bld) 65.0 % Normal 43.0-75.[address] [facility] Comment on above: Performed By: #### C BC #### [facility] [address] [address] [address] Miriam Ernandez Platelet mean volume (Bld) [Entitic vol] 9.8 fL Normal 9.5-13.[address] [facility] Comment on above: Performed By: #### C BC #### [facility] [address] [address] [address] Miriam Ernandez PLT 255 103/ul Normal 150-[address] [facility] Comment on above: Performed By: #### C BC #### [facility] [address] [address] [address] Miriam Ernandez RBC 4.62 106/ul Critically low 4.70-6.10 [facility] Comment on above: Performed By: #### C BC #### [facility] [address] [address] [address] Miriam Ernandez WBC 10.7 103/ul Normal 4.0-11.[address] [facility] Comment on above: Performed By: #### C BC #### [facility] [address] [address] [address] Miriam Ernandez LIPID PROFILEon 08-14-2022 CHOL-HDL RATIO NORM SEE BELOW Normal [facility] Comment on above: Result Comment: 3.3 - 4.4 LOW RISK 4.4 - 7.1 AVERAGE RISK 7.1 - 11.0 MODERATE RISK >11.0 HIGH RISK Performed By: #### L IPID, CMP #### [facility] [address] [address] [address] Miriam Ernandez Cholesterol [Mass/Vol] 108 mg/dL Normal <=[address] [facility] Comment on above: Performed By: #### L IPID, CMP #### [facility] [address] [address] [address] Miriam Ernandez Cholesterol in HDL [Mass/Vol] 31 mg/dL Critically low 40-[address] [facility] Comment on above: Performed By: #### L IPID, CMP #### [facility] [address] [address] [address] Miriam Ernandez Cholesterol in LDL [Mass/Vol] 50.0 mg/dL Normal [facility] Comment on above: Performed By: #### L IPID, CMP #### [facility] [address] [address] [address] Miriam Ernandez Cholesterol.total/ Cholesterol in HDL [Mass ratio] 3.5 {ratio} Normal [facility] Comment on above: Performed By: #### L IPID, CMP #### [facility] [address] [address] [address] Miriam Ernandez HDL NORMAL > or = 60 mg/dl - LOW CARDIOVASCULAR RISK <40 mg/dl - HIGH CARDIOVASCULAR RISK Normal [facility] Comment on above: Performed By: #### L IPID, CMP #### [facility] [address] [address] [address] Miriam Ernandez LDL CALC NORMAL SEE BELOW Normal [facility] Comment on above: Result Comment: <100 mg/dl OPTIMAL 100 - 129 mg/dl NEAR OR ABOVE OPTIMAL 130 - 159 mg/dl BORDERLINE HIGH 160 - 189 mg/dl HIGH >190 mg/dl VERY HIGH Performed By: #### L IPID, CMP #### [facility] [address] [address] [address] Miriam Ernandez Triglyceride [Mass/Vol] 135 mg/dL Normal <=[address] [facility] Comment on above: Performed By: #### L IPID, CMP #### [facility] [address] [address] [address] Miriam Ernandez VLDL CALC 27.0 mg/dL Normal [facility] Comment on above: Performed By: #### L IPID, CMP #### [facility] [address] [address] [address] Miriam Ernandez PROF 14(COMP METB)on 023 Albumin [Mass/Vol] 3.9 g/dL Normal 3.4-5.[address] [facility] Comment on above: Performed By: #### L IPID, CMP #### [facility] [address] [place] [address] Dr. Miriam Ernandez Albumin/Globulin [Mass ratio] 1.2 {ratio} Normal [facility] Comment on above: Performed By: #### L IPID, CMP #### [facility] [address] [place] [address] Dr. Miriam Ernandez ALP [Catalytic activity/Vol] 110 U/L Normal 46-[address] [facility] Comment on above: Performed By: #### L IPID, CMP #### [facility] [address] [place] [address] Dr. Miriam Ernandez ALT [Catalytic activity/Vol] 46 U/L Normal 16-[address] [facility] Comment on above: Performed By: #### L IPID, CMP #### [facility] [address] [place] [address] Dr. Miriam Ernandez Anion gap [Moles/Vol] 10.9 mmol/L Normal [facility] Comment on above: Performed By: #### L IPID, CMP #### [facility] [address] [place] [address] Dr. Miriam Ernandez AST [Catalytic activity/Vol] 18 U/L Normal 15-[address] [facility] Comment on above: Performed By: #### L IPID, CMP #### [facility] [address] [address] [address] Miriam Ernandez Bilirubin [Mass/Vol] 0.2 mg/dL Normal 0.2-1.[address] [facility] Comment on above: Performed By: #### L IPID, CMP #### [facility] [address] [place] [address] Dr. Miriam Ernandez Calcium [Mass/Vol] 9.4 mg/dL Normal 8.5-10.[address] [facility] Comment on above: Performed By: #### L IPID, CMP #### [facility] [address] [place] [address] Dr. Miriam Ernandez Chloride [Moles/Vol] 105 mmol/L Normal 98-[address] [facility] Comment on above: Performed By: #### L IPID, CMP #### [facility] [address] [place] [address] Dr. Miriam Ernandez CO2 [Moles/Vol] 30.2 mmol/L Normal 21.0-32.0 [facility] Comment on above: Performed By: #### L IPID, CMP #### [facility] [address] [place] [address] Dr. Miriam Ernandez Creatinine [Mass/Vol] 0.80 mg/dL Normal 0.70-1.[address] [facility] Comment on above: Performed By: #### L IPID, CMP #### [facility] [address] [place] [address] Dr. Miriam Ernnadez EGFR-AF GREEK >60 Normal >=60 [facility] Comment on above: Performed By: #### L IPID, CMP #### [facility] [address] [place] [address] Dr. Miriam Ernandez EGFR-NON AF GREEK >60 Normal >=[address] [facility] Comment on above: Performed By: #### L IPID, CMP #### [facility] [address] [place] [address] Dr. Miriam Ernandez Globulin (S) [Mass/Vol] 3.3 g/dL Normal [facility] Comment on above: Performed By: #### L IPID, CMP #### [facility] [address] [place] [address] Dr. Miriam Ernandez Glucose [Mass/Vol] 64 mg/dL Critically low 74-106 [facility] Comment on above: Performed By: #### L IPID, CMP #### [facility] [address] [place] [address] Dr. Miriam Ernandez Potassium [Moles/Vol] 4.1 mmol/L Normal 3.5-5.[address] [facility] Comment on above: Performed By: #### L IPID, CMP #### [facility] [address] [place] [address] Dr. Miriam Ernandez Protein [Mass/Vol] 7.2 g/dL Normal 6.4-8.[address] [facility] Comment on above: Performed By: #### L IPID, CMP #### [facility] [address] [place] [address] Dr. Miriam Ernandez Sodium [Moles/Vol] 142 mmol/L Normal 136-[address] [facility] Comment on above: Performed By: #### L IPID, CMP #### [facility] [address] [place] [address] Dr. Miriam Ernandez Urea nitrogen [Mass/Vol] 10.0 mg/dL Normal 7.0-18.[address] [facility] Comment on above: Performed By: #### L IPID, CMP #### [facility] [address] [place] [address] Dr. Miriam Ernandez Urea nitrogen/Creatinin e [Mass ratio] 12.5 mg/mg Normal [facility] Comment on above: Performed By: #### L IPID, CMP #### [facility] [address] [place] [address] Dr. Miriam Ernandez HEMOGLOBINon 02-20-2022 Hemoglobin (Bld) [Mass/Vol] 14.5 g/dL Normal 14.0-18.[address] [facility] Comment on above: Performed By: #### H GB #### [facility] [address] [place] [address] Dr. Miriam Ernandez XR CHEST 2 Von [...] by: BRYN AMADOR Date: 2022-02-20 15:[address] [facility] Encounters Encounter Date Encounter Type Care Provider Facility Start: 09-21-2023 End: 09-21-2023 ambulatory [facility] Start: 08-29-2023 End: 08-30-2023 ambulatory Favian Lugo MD Facility:[facility] Start: 07-04-2023 End: 07-04-2023 ambulatory [facility] Start: 05-30-2023 End: 05-30-2023 ambulatory [facility] Start: 04-17-2023 End: 04-17-2023 ambulatory [facility] Start: 11-08-2022 End: 11-09-2022 ambulatory DEBORAH SAMSA . Facility:[facility] Start: 08-14-2022 End: 08-15-2022 ambulatory VANCE SHAMMO Facility:[facility] Start: 02-27-2022 End: 02-28-2022 ambulatory DEBORAH SAMSA . Facility:[facility] Start: 02-20-2022 End: 02-21-2022 ambulatory DEBORAH SAMSA . Facility:[facility] Start: 02-20-2022 End: 02-21-2022 ambulatory DEBORAH SAMSA . Facility:[facility] Payers Date Payer Category Payer Unknown [id number] 2.16.84 [id number] 1974 Unknown [id number] 2.16.84 [id number] 1974 Unknown [id number] 2.16.84 [id number] 1974 Unknown [id number] 2.16.84 [id number] 1974 Unknown [id number] 2.16.84 [id number] 1974 Unknown [id number] 2.16.8 [id number] 1959 Unknown [id number] Clinical Notes 11-08-2022 to 09-21-2023 Note Date & Type Note Facility 09-21-2023 Note Tobacco use is stabl e, recommended smoking cessation [facility] 09-21-2023 Note lipitor was recently increased to 80 mg daily Repeat LFT and Lipid levels in 2 months Pt voiced understanding and denied any myaglias [facility] 09-21-2023 Note Currently resolved [facility] 09-21-2023 Note Review of Systems Musculoskeletal: Positive for back pain. All other systems reviewed and are negative. Chest pain has resolved from last time [facility] 09-21-2023 Note [facility] CARDI[facility]Y PROGR ESS NOTE HPI: Gina Li is a 47 y.o. male here for 3 month F/U HPI 47 y.o. male here for f/U s/p recent cardiac cath for abnormal stress test, angina, and [place] Currently states chest pain has resolved, denied SOB or orthopnea. Denied any activity limiting symptoms Review of Systems Constitutional: Negative. Respiratory: Negative. Cardiovascular: Negative. Neurological: Negative. All other systems reviewed and are negative. Previous HPI- Cardiac cath was completed 05/30/[address] [...] smoking to 1 pack lasting 3 days. Visit Vitals BP 133/88 (BP Location: Left arm, Patient Position: Sitting, BP Cuff Size: Large adult) Pulse 78 Resp 16 Ht 1.753 m (5' 9 ) Wt 102 kg (225 lb 3.2 oz) SpO2 97% BMI 33.26 kg/m??? Smoking Status Former BSA 2.23 m??? No Known Allergies Medications: Current Outpatient [...] by mouth in the morning. atorvastatin (Lipitor) 80 mg tablet Take 1 tablet (80 mg) by mouth in the morning. 90 tablet 3 buPROPion (Zyban) 150 mg 12 hr tablet [...] into inhaler and inhale in the morning. No current facility-administered medications on file prior to visit. Physical Exam: Constitutional: Appearance: Normal appearance. Without apparent distress HENT: Head: Normocephalic and atraumatic. Nose: Nose normal. Mouth/Throat: Mouth: Mucous membranes are moist. Eyes: Extraocular Movements: Extraocular movements intact. Conjunctiva/sclera: Conjunctivae normal. Neck: Vascular: No JVD. Cardiovascular: Rate and Rhythm: Normal rate and regular rhythm. Pulses: Dorsalis pedis pulses are 3 on the [...] Thought content normal. Judgment: Judgment normal. Labs: reviewed previous labs and Chol/LDL goals 03/03/23 CBC normal Renal and liver function normal Chol 134, Trig 50, HDL 33, LDL 91 A1c- 5.5 Last lab values have been reviewed CV Testin05/30/23 Cardiac cath- reviewed with pt Final Impressions: -mild to moderate non obstructive [...] vessel Ramus -this is the mid side ve (more content not included)... [facility] 09-21-2023 Note Coronary artery dise ase is stable Continue GDMT- ASA, lipitor and losartan continue risk factor modifications- heart healthy diet, regular exercise as tolerated and continue all medications. [facility] 09-14-2023 Note LDL remains > 70 the refore will increase lipitor to 80 mg daily and repeat LFT and lipid level in 2-3 months Staff to notify pt Cecilia Ramos [facility] Cardiology Available 7a-5pm via Epic Chat Pager [phone] [facility] 07-04-2023 Note Tobacco use is impro ving where he is down to 1 pack in 3 days with wellbutrin use. 10 min discussion regarding importance of smoking cessation with noted mild to mod CAD and he voiced understanding [facility] 07-04-2023 Note Continue lipitor 40 mg daily, recommended pt to take in the evening. Repeat LFT and lipid level in about 2 months after increased dose of lipitor to 40 mg after cardiac cath [facility] 07-04-2023 Note Patient here for fol low up cath on 05/30/[address] Richard. Lipitor was increased to 40mg nightly. Tolerating it well so far. Still has chest pain but thinks it's musculoskeletal. Review of Systems Cardiovascular: Positive for chest pain. Musculoskeletal: Positive for back pain. All other systems reviewed and are negative. [facility] 07-04-2023 Note [facility] CARDIOLOGY PROGR ESS NOTE [...] mid side vess (more content not included)... [facility] 07-04-2023 Note No significant coron deven disease that would explain his symptoms, f/U with PCP for further evaluation of other etiologies for symptoms including- pulmonary, GI and/or muscular-skeletal. Most likely r/t muscular/skeletal etiology but he also has h/o barretts esophagus [facility] 07-03-2023 Note Coronary artery dise ase is stable Continue GDMT- ASA, liptor 40 mg daily, losartan continue risk factor modifications- heart healthy diet, regular exercise as tolerated and continue all medications. Continue attempting at smoking cessation [facility] 05-30-2023 Note Patient: Gina Li Procedure Information Date/Time: 05/30/23 0830 Procedure: Coronary angiography (Left) Location: [facility] [employer] [facility] / [facility] (Cath) Providers: Adrienne Richard MD Clinical information reviewed: Tobacco Allergies [...] with fellow and attending. Additional Equipment Requests [facility] 04-17-2023 Note Cardiology Clinic No te Chief [...] -Patient was e (more content not included)... [facility] 04-17-2023 Note New patient here to establish care. Ref from Dr. Felton for chest pain. He had stress test [...] All other systems reviewed and are negative. [facility] 11-08-2022 Note PROCEDURE: XR CHEST 2 V DATE: 11/08/2022 7:50 AM CDT COMPARISONS: 02/20/2022 CLINICAL INDICATION: 46 years Male Exacerbation of mild persistent asthma FINDINGS: The cardiomediastinal silhouette and pulmonary vasculature are within normal limits. The lungs are clear. There is no evidence of pleural effusion or pneumothorax. IMPRESSION: Chest radiograph is within normal limits. Electronically authenticated by: DAVID CRUZ Date: 2022-11-08 09:[address] [facility] Summary Purpose Family History No Family History Records FoundNo Family History Records FoundNo Family History Records Found Advance Directives No Advanced Directives Records FoundNo Advanced Directives Records FoundNo Advanced Directives Records Found Additional Source Comments (unrecognized sect ion and content) No Status Records FoundNo Status Records FoundNo Status Records Found INFORMATION SOURCE (unrecogn ized section and content) DATE CREATED AUTHOR 11/15/2022 [employer] DATE CREATED AUTHOR AUTHOR'S ORGANIZ ATION 09/06/[address] [facility] DATE CREATED AUTHOR AUTHOR'S ORGANIZ ATION 09/22/2023 [facility] FOR RECORDS PERTAINING TO PATIENTS WHO [...] BE BASED ON THE PRIMARY CLINICAL RECORDS. [employer] provides no warranty or guarantee of the accuracy or completeness of information in this document.
== END 2024-01-08 08:08 | disposition home or self-care (01) ==
LOC: LAB 01-11 08:08
PROVIDERS: PCP Nurse Practitioner; Visit Provider Nurse Practitioner
DX: E78.2 Mixed hyperlipidemia (principal); I10 Essential (primary) hypertension
CPT/HCPCS: 36415; 80053; 80061; 85027